=== PATIENT | female | born 2000 | race Caucasian/White ===

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

== ENCOUNTER 2019-02-20 00:02 | Emergency (ER) | payer MEDICAID ==
[~2019-02-20] VITALS: Ht 162.6 cm; Wt 77.1 kg
[2019-02-20] MEDS ORDERED: SODIUM CHLORIDE 0.9% 1,000 ML IV ONE (00:30)
[2019-02-20 01:16] LABS: Urine Bacteria FEW /hpf (None Seen); Urine Blood TRACE /uL (Negative); Urine Mucus FEW (None Seen); Urine Specific Gravity 1.036 (1.001-1.035); Urine WBC 1 /hpf (0 - 5)
[2019-02-20 01:22] LABS: Acetaminophen 3.8 ug/mL (10-30); Salicylate < 1.7 mg/dL (2.8-20.0)
[2019-02-20 01:25] LABS: Albumin 3.7 g/dL (3.4-5.0); Calcium 8.4 mg/dL (8.5-10.1); Potassium 3.3 mmol/L (3.5-5.1)
[2019-02-20 01:26] LABS: Basophils # (auto) 0 uL; Basophils % (auto) 0.1 % (0.0-2.0); Eosinophils # (auto) 0 uL; Eosinophils % (auto) 0.5 % (0.0-7.0); Hematocrit 40.5 % (36.0-46.0); Hemoglobin 13.8 g/dL (12.2-16.2); Lymphocytes # (auto) 1.8 uL; Lymphocytes % (auto) 21.4 % (10.0-50.0); Mean Corpuscular Hemoglobin 28.4 pg (28.0-32.0); Mean Corpuscular Hgb Conc. 34.1 g/dL (32.0-36.0); Mean Corpuscular Volume 83.3 fL (80.0-100.0); Monocytes # (auto) 0.5 uL; Monocytes % (auto) 6.2 % (0.0-12.0); Neutrophils # (auto) 5.9 uL; Neutrophils % (auto) 71.8 % (37.0-80.0); Nucleated Red Blood Cells % 0.1 %; Platelet Count (auto) 233 10^3/uL (140-450); Red Blood Cells 4.86 10^6/uL (4.0-5.20); Red Cell Distribution Width 13.7 % (11.8-14.3); White Blood Cell 8.3 10^3/uL (4.4-10.8)
[2019-02-20 01:26] LABS: Alcohol, Urine < 3.0 mg/dL (0-5); Amphetamine Screen, Urine NEGATIVE (NEGATIVE); Barbiturate Scree,Urine NEGATIVE (NEGATIVE); Benzodiazephine Screen, Urine NEGATIVE (NEGATIVE); Cannabinoid Screen, Urine NEGATIVE (NEGATIVE); Cocaine Screen, Urine NEGATIVE (NEGATIVE); Opiate Scree,Urine NEGATIVE (NEGATIVE); Phencyclidine Screen, Urine NEGATIVE (NEGATIVE)
[2019-02-20 01:27] LABS: BUN/Creatinine Ratio 17.5
[2019-02-20 01:29] LABS: Bilirubin, Total 0.3 mg/dL (0.2-1.0); Total Protein 6.8 g/dL (6.4-8.2)
[2019-02-20] MEDS ORDERED: POTASSIUM EFFERVESENT TAB 25 MEQ PO ONE (13:00)
[2019-02-20 14:30] VITALS: BP 111/73
== END 2019-02-20 14:47 | disposition short-term general hospital (02) ==
LOC: ER 00:02 → EDBD 00:02 → ER 14:47
DX: T50.902A Poisoning by unspecified drugs, medicaments and biological substances, intentional self-harm, initial encounter (principal); F41.9 Anxiety disorder, unspecified; F31.9 Bipolar disorder, unspecified; Y92.89 Other specified places as the place of occurrence of the external cause
CPT/HCPCS: 36415; 80053; 80307; 80329; 81001; 81025; 85025; 93005; 94761; 99285; J7030

== ENCOUNTER 2019-09-19 17:02 | Emergency (ER) | payer MEDICAID ==
[~2019-09-19] VITALS: Ht 162.6 cm; Wt 54.4 kg
[2019-09-19] MEDS ORDERED: SODIUM CHLORIDE 0.9% 1,000 ML IV ONE (18:26)
[2019-09-19 20:35] LABS: Basophils # (auto) 0 uL; Basophils % (auto) 0.5 % (0.0-2.0); Eosinophils # (auto) 0.1 uL; Eosinophils % (auto) 1.7 % (0.0-7.0); Hematocrit 43.1 % (36.0-46.0); Lymphocytes # (auto) 2.6 uL; Lymphocytes % (auto) 37.9 % (10.0-50.0); Mean Corpuscular Hemoglobin 28.8 pg (28.0-32.0); Mean Corpuscular Hgb Conc. 34.9 g/dL (32.0-36.0); Mean Corpuscular Volume 82.6 fL (80.0-100.0); Monocytes # (auto) 0.4 uL; Monocytes % (auto) 5.3 % (0.0-12.0); Neutrophils # (auto) 3.8 uL; Neutrophils % (auto) 54.6 % (37.0-80.0); Platelet Count (auto) 240 10^3/uL (140-450); Red Blood Cells 5.22 10^6/uL (4.0-5.20); Red Cell Distribution Width 13.9 % (11.8-14.3)
[2019-09-19 20:44] LABS: Urine Specific Gravity 1.027 (1.001-1.035)
[2019-09-19 20:45] VITALS: BP 107/70
[2019-09-19 20:45] LABS: Urine Blood Trace /uL (Negative)
[2019-09-19 20:49] LABS: Albumin 4.1 g/dL (3.4-5.0); Calcium 8.7 mg/dL (8.5-10.1); Potassium 4.2 mmol/L (3.5-5.1)
[2019-09-19 20:52] LABS: BUN/Creatinine Ratio 23.5; Bilirubin, Total 0.4 mg/dL (0.2-1.0); Total Protein 7.3 g/dL (6.4-8.2)
== END 2019-09-19 22:07 | disposition home or self-care (01) ==
LOC: ER 17:02
DX: N93.8 Other specified abnormal uterine and vaginal bleeding (principal); M54.5 Low back pain; F17.210 Nicotine dependence, cigarettes, uncomplicated; F12.10 Cannabis abuse, uncomplicated; J45.909 Unspecified asthma, uncomplicated
CPT/HCPCS: 36415; 80053; 81003; 84702; 85025; 99283; J7030

== ENCOUNTER → 2020-10-02 | Emergency (ER) | payer MEDICAID ==
[~2020-10-02] VITALS: Ht 165.1 cm; Wt 78.9 kg
[~2020-10-02] MED LIST changes: +LORazepam 2MG/ML-1ML VIAL IV ONE; +LORazepam 2MG/ML-1ML VIAL ONE; +SODIUM CHLORIDE 0.9% 1,000 ML IV ONE; +levETIRAcetam 500 MG/5ML INJ IV ONE
[2020-10-03 03:03] LABS: Basophils # (auto) 0 10 ^3/uL (0-0.2); Basophils % (auto) 0.2 % (0.0-2.0); Eosinophils # (auto) 0.1 10 ^3/uL (0-0.8); Hematocrit 36.9 % (36.0-46.0); Hemoglobin 12.4 g/dL (12.2-16.2); Lymphocytes # (auto) 2.8 10 ^3/uL (0.4-5.4); Lymphocytes % (auto) 37.5 % (10.0-50.0); Mean Corpuscular Hemoglobin 27.9 pg (28.0-32.0); Mean Corpuscular Hgb Conc. 33.7 g/dL (32.0-36.0); Monocytes # (auto) 0.4 10 ^3/uL (0-1.3); Neutrophils # (auto) 4.2 10 ^3/uL (1.6-8.6); Neutrophils % (auto) 56.3 % (37.0-80.0); Platelet Count (auto) 268 10^3/uL (140-450); Red Blood Cells 4.44 10^6/uL (4.0-5.20); Red Cell Distribution Width 13.9 % (11.8-14.3); White Blood Cell 7.4 10^3/uL (4.4-10.8)
[2020-10-03 03:17] LABS: Albumin 3.3 g/dL (3.4-5.0); BUN/Creatinine Ratio 8.9; Calcium 7.7 mg/dL (8.5-10.1)
[2020-10-03 03:20] LABS: Bilirubin, Total 0.3 mg/dL (0.2-1.0); Total Protein 6.1 g/dL (6.4-8.2)
[2020-10-03 05:31] VITALS: BP 99/58
== END | disposition home or self-care (01) ==
LOC: EDUNIT# 19:18 → EDBD 19:35 → ER 19:35
DX: G40.409 Other generalized epilepsy and epileptic syndromes, not intractable, without status epilepticus (principal); F17.210 Nicotine dependence, cigarettes, uncomplicated; F12.10 Cannabis abuse, uncomplicated; Z91.14 Patient's other noncompliance with medication regimen
CPT/HCPCS: 36415; 70450; 72125; 80053; 85025; 96365; 96375; 99285; J1953; J2060; J7030; J7060

== ENCOUNTER 2020-10-12 17:07 | Emergency (ER) | payer MEDICAID ==
[~2020-10-12] VITALS: Ht 170.2 cm; Wt 79.4 kg
[~2020-10-12 17:07] MED LIST changes: -LORazepam 2MG/ML-1ML VIAL IV ONE; -LORazepam 2MG/ML-1ML VIAL ONE; -SODIUM CHLORIDE 0.9% 1,000 ML IV ONE; -levETIRAcetam 500 MG/5ML INJ IV ONE
[2020-10-12] MEDS ORDERED: LORazepam 2MG/ML-1ML VIAL ONE (17:32)
[2020-10-12] MEDS ORDERED: SODIUM CHLORIDE 0.9% 1,000 ML IVB ONE (18:00)
[2020-10-12 20:10] LABS: Basophils # (auto) 0 10 ^3/uL (0-0.2); Basophils % (auto) 0.3 % (0.0-2.0); Eosinophils # (auto) 0 10 ^3/uL (0-0.8); Eosinophils % (auto) 0.4 % (0.0-7.0); Hematocrit 37.2 % (36.0-46.0); Hemoglobin 12.9 g/dL (12.2-16.2); Lymphocytes # (auto) 2.5 10 ^3/uL (0.4-5.4); Lymphocytes % (auto) 25.4 % (10.0-50.0); Mean Corpuscular Hemoglobin 28.6 pg (28.0-32.0); Mean Corpuscular Hgb Conc. 34.7 g/dL (32.0-36.0); Mean Corpuscular Volume 82.6 fL (80.0-100.0); Monocytes # (auto) 0.4 10 ^3/uL (0-1.3); Monocytes % (auto) 4.1 % (0.0-12.0); Neutrophils # (auto) 6.9 10 ^3/uL (1.6-8.6); Neutrophils % (auto) 69.8 % (37.0-80.0); Platelet Count (auto) 290 10^3/uL (140-450); Red Blood Cells 4.51 10^6/uL (4.0-5.20); Red Cell Distribution Width 13.8 % (11.8-14.3); White Blood Cell 9.9 10^3/uL (4.4-10.8)
[2020-10-12 20:19] LABS: Albumin 3.7 g/dL (3.4-5.0); Calcium 8.5 mg/dL (8.5-10.1); Potassium 3.4 mmol/L (3.5-5.1)
[2020-10-12 20:21] LABS: BUN/Creatinine Ratio 15.3
[2020-10-12 20:24] LABS: Bilirubin, Total 0.3 mg/dL (0.2-1.0); Total Protein 6.7 g/dL (6.4-8.2)
[2020-10-12 20:28] LABS: Acetaminophen < 2.0 ug/mL (10-30); Salicylate < 1.7 mg/dL (2.8-20.0)
[2020-10-12 20:32] LABS: Magnesium 2.1 mg/dL (1.6-2.6)
[2020-10-12 20:36] LABS: Creatine Kinase IFCC 56 U/L (26-192)
[2020-10-13 01:27] VITALS: BP 105/57
== END 2020-10-13 02:59 | disposition home or self-care (01) ==
LOC: ER 17:07 → EDUNIT# 17:07 → EDBD 17:07 → ER 10-13 02:58
DX: T65.91XA Toxic effect of unspecified substance, accidental (unintentional), initial encounter (principal); G40.909 Epilepsy, unspecified, not intractable, without status epilepticus; F17.210 Nicotine dependence, cigarettes, uncomplicated; Z79.899 Other long term (current) drug therapy; Y92.89 Other specified places as the place of occurrence of the external cause
CPT/HCPCS: 36415; 80053; 80320; 80329; 82542; 82550; 83605; 83735; 84484; 84702; 85025; 96360; 99283; J2060

== ENCOUNTER 2021-01-24 19:30 | Emergency (ER) | payer MEDICAID ==
[~2021-01-24] VITALS: Ht 170.2 cm; Wt 90.7 kg
[~2021-01-24 19:30] MED LIST changes: +ZIPR80CA37 PO; -ZIPR80CA8 PO
[2021-01-24 20:04] LABS: Basophils # (auto) 0 10 ^3/uL (0-0.2); Basophils % (auto) 0.5 % (0.0-2.0); Eosinophils # (auto) 0.1 10 ^3/uL (0-0.8); Eosinophils % (auto) 0.7 % (0.0-7.0); Hematocrit 37.8 % (36.0-46.0); Lymphocytes # (auto) 2.8 10 ^3/uL (0.4-5.4); Mean Corpuscular Hemoglobin 28.1 pg (28.0-32.0); Mean Corpuscular Hgb Conc. 34.4 g/dL (32.0-36.0); Mean Corpuscular Volume 81.6 fL (80.0-100.0); Monocytes # (auto) 0.5 10 ^3/uL (0-1.3); Monocytes % (auto) 6.3 % (0.0-12.0); Neutrophils # (auto) 4.6 10 ^3/uL (1.6-8.6); Neutrophils % (auto) 57.5 % (37.0-80.0); Nucleated Red Blood Cells % 0.1 %; Platelet Count (auto) 261 10^3/uL (140-450); Red Blood Cells 4.63 10^6/uL (4.0-5.20); Red Cell Distribution Width 14.5 % (11.8-14.3)
[2021-01-24 20:20] LABS: Albumin 3.5 g/dL (3.4-5.0); Calcium 8.5 mg/dL (8.5-10.1); Potassium 3.1 mmol/L (3.5-5.1)
[2021-01-24 20:22] LABS: Salicylate < 1.7 mg/dL (2.8-20.0)
[2021-01-24 20:23] LABS: BUN/Creatinine Ratio 17.6; Bilirubin, Total 0.6 mg/dL (0.2-1.0); Total Protein 6.4 g/dL (6.4-8.2)
[2021-01-24 20:40] LABS: Acetaminophen 115.1 ug/mL (10-30)
[2021-01-24 22:07] LABS: Basophils # (auto) 0 10 ^3/uL (0-0.2); Basophils % (auto) 0.3 % (0.0-2.0); Eosinophils # (auto) 0 10 ^3/uL (0-0.8); Eosinophils % (auto) 0.5 % (0.0-7.0); Hemoglobin 12.2 g/dL (12.2-16.2); Lymphocytes # (auto) 3.4 10 ^3/uL (0.4-5.4); Lymphocytes % (auto) 40.7 % (10.0-50.0); Mean Corpuscular Hemoglobin 27.9 pg (28.0-32.0); Mean Corpuscular Volume 82.2 fL (80.0-100.0); Monocytes # (auto) 0.5 10 ^3/uL (0-1.3); Monocytes % (auto) 5.7 % (0.0-12.0); Neutrophils # (auto) 4.4 10 ^3/uL (1.6-8.6); Neutrophils % (auto) 52.8 % (37.0-80.0); Nucleated Red Blood Cells % 0.2 %; Platelet Count (auto) 259 10^3/uL (140-450); Red Blood Cells 4.38 10^6/uL (4.0-5.20); Red Cell Distribution Width 14.4 % (11.8-14.3); White Blood Cell 8.4 10^3/uL (4.4-10.8)
[2021-01-24 22:12] LABS: Salicylate < 1.7 mg/dL (2.8-20.0)
[2021-01-24 22:13] LABS: Alanine Aminotransferase 34 U/L (13-56); Albumin 3.2 g/dL (3.4-5.0); Anion Gap 5 (5-15); Aspartate Aminotransferase 18 U/L (15-37); Blood Alcohol < 3.0 mg/dL (0-5); Blood Urea Nitrogen 13 mg/dL (7-18); Carbon Dioxide 25 mmol/L (21-32); Chloride 114 mmol/L (98-107); Glucose 85 mg/dL (74-106); Potassium 3.6 mmol/L (3.5-5.1); Sodium 144 mmol/L (136-145)
[2021-01-24 22:16] LABS: Alkaline Phosphatase 48 U/L (45-117); Bilirubin, Total 0.6 mg/dL (0.2-1.0); GFR African American 147 mL/min; GFR Non-African American 121 mL/min; Total Protein 5.9 g/dL (6.4-8.2)
[2021-01-24 22:25] LABS: Acetaminophen 93.9 ug/mL (10-30)
[2021-01-25 08:05] LABS: Albumin 3.4 g/dL (3.4-5.0); Calcium 8.6 mg/dL (8.5-10.1); Potassium 3.2 mmol/L (3.5-5.1)
[2021-01-25 08:09] LABS: Bilirubin, Total 0.6 mg/dL (0.2-1.0); Total Protein 6.3 g/dL (6.4-8.2)
[2021-01-25 14:07] LABS: Urine Bacteria MOD /hpf (None Seen); Urine Blood Negative /uL (Negative); Urine Mucus FEW (None Seen); Urine Specific Gravity 1.042 (1.001-1.035); Urine WBC 4 /hpf (0 - 5)
[2021-01-25 14:30] LABS: Cannabinoid Screen, Urine POSITIVE (NEGATIVE)
[2021-01-25 14:36] LABS: Amphetamine Screen, Urine NEGATIVE (NEGATIVE); Barbiturate Scree,Urine NEGATIVE (NEGATIVE); Benzodiazephine Screen, Urine NEGATIVE (NEGATIVE); Cocaine Screen, Urine NEGATIVE (NEGATIVE); Opiate Scree,Urine NEGATIVE (NEGATIVE); Phencyclidine Screen, Urine NEGATIVE (NEGATIVE)
[2021-01-25] MEDS ORDERED: diphenhdrAMINE HCL 50 MG/1 ML VL IV ONE (20:15)
[2021-01-25] MEDS ORDERED: LORazepam 2MG/ML-1ML VIAL IM ONE (20:15)
[2021-01-25] MEDS ORDERED: HALOPERIDOL LACTATE 5 MG/ML INJ VIAL IM ONE (20:15)
[2021-01-26 05:10] VITALS: BP 105/65
== END 2021-01-26 05:33 ==
LOC: EDBD 19:30 → EDUNIT# 19:30 → ER 19:30
DX: F15.10 Other stimulant abuse, uncomplicated (principal); F17.210 Nicotine dependence, cigarettes, uncomplicated; Z20.822 Contact with and (suspected) exposure to COVID-19; X83.8XXA Intentional self-harm by other specified means, initial encounter; Y93.89 Activity, other specified; Y92.89 Other specified places as the place of occurrence of the external cause; Y99.8 Other external cause status
CPT/HCPCS: 36415; 80053; 80307; 80320; 80329; 81001; 84702; 85025; 87426; 93005; 96372; 96374; 99285; J1200; J1630; J2060

== ENCOUNTER 2021-09-26 14:19 | Emergency (ER) | payer MEDICAID ==
[~2021-09-26] VITALS: Ht 121.9 cm; Wt 82.6 kg
[2021-09-26 14:24] VITALS: BP 116/61
[2021-09-26 16:05] LABS: Basophils # (auto) 0 10 ^3/uL (0-0.2); Basophils % (auto) 0.4 % (0.0-2.0); Eosinophils # (auto) 0.2 10 ^3/uL (0-0.8); Eosinophils % (auto) 1.8 % (0.0-7.0); Hematocrit 40.1 % (36.0-46.0); Lymphocytes # (auto) 2.6 10 ^3/uL (0.4-5.4); Lymphocytes % (auto) 27.5 % (10.0-50.0); Mean Corpuscular Hemoglobin 29.2 pg (28.0-32.0); Mean Corpuscular Volume 83.5 fL (80.0-100.0); Monocytes # (auto) 0.5 10 ^3/uL (0-1.3); Neutrophils # (auto) 6.1 10 ^3/uL (1.6-8.6); Neutrophils % (auto) 65.3 % (37.0-80.0); Red Cell Distribution Width 12.8 % (11.8-14.3); White Blood Cell 9.3 10^3/uL (4.4-10.8)
[2021-09-26 16:23] LABS: Albumin 3.8 g/dL (3.4-5.0); Calcium 8.5 mg/dL (8.5-10.1); Potassium 4.2 mmol/L (3.5-5.1)
[2021-09-26 16:29] LABS: BUN/Creatinine Ratio 16.9; Bilirubin, Total 0.6 mg/dL (0.2-1.0); Total Protein 6.8 g/dL (6.4-8.2)
== END 2021-09-26 15:18 | disposition left against medical advice (07) ==
LOC: ER 14:19
DX: B02.9 Zoster without complications (principal); F17.210 Nicotine dependence, cigarettes, uncomplicated; F12.10 Cannabis abuse, uncomplicated; J45.909 Unspecified asthma, uncomplicated; R94.31 Abnormal electrocardiogram [ECG] [EKG]
CPT/HCPCS: 36415; 80053; 85025; 93005

== ENCOUNTER → 2022-05-11 | Emergency (ER) | payer MEDICAID ==
[~2022-05-11] VITALS: Ht 162.6 cm; Wt 88.0 kg
[2022-05-11 22:11] LABS: Urine Bacteria FEW /hpf (None Seen); Urine Blood 3+ /uL (Negative); Urine Mucus FEW (None Seen); Urine Specific Gravity 1.028 (1.001-1.035); Urine WBC 1 /hpf (0 - 5)
[2022-05-11 22:26] VITALS: BP 147/82
[2022-05-11 23:31] LABS: Basophils # (auto) 0 10 ^3/uL (0-0.2); Basophils % (auto) 0.5 % (0.0-2.0); Eosinophils # (auto) 0.1 10 ^3/uL (0-0.8); Eosinophils % (auto) 1.6 % (0.0-7.0); Hematocrit 39.4 % (36.0-46.0); Hemoglobin 13.3 g/dL (12.2-16.2); Lymphocytes % (auto) 38.8 % (10.0-50.0); Mean Corpuscular Hemoglobin 28.1 pg (28.0-32.0); Mean Corpuscular Hgb Conc. 33.7 g/dL (32.0-36.0); Mean Corpuscular Volume 83.5 fL (80.0-100.0); Monocytes # (auto) 0.4 10 ^3/uL (0-1.3); Monocytes % (auto) 5.4 % (0.0-12.0); Neutrophils # (auto) 4.2 10 ^3/uL (1.6-8.6); Neutrophils % (auto) 53.7 % (37.0-80.0); Red Blood Cells 4.72 10^6/uL (4.0-5.20); Red Cell Distribution Width 13.7 % (11.8-14.3); White Blood Cell 7.8 10^3/uL (4.4-10.8)
[2022-05-11 23:49] LABS: Albumin 3.8 g/dL (3.4-5.0); BUN/Creatinine Ratio 16.9; Calcium 8.8 mg/dL (8.5-10.1); Potassium 3.5 mmol/L (3.5-5.1)
[2022-05-11 23:52] LABS: Bilirubin, Total 0.3 mg/dL (0.2-1.0); Total Protein 7.1 g/dL (6.4-8.2)
== END | disposition left against medical advice (07) ==
LOC: EDUNIT# 21:13 → ER 21:28 → EDBD 21:28
DX: G40.909 Epilepsy, unspecified, not intractable, without status epilepticus (principal); F17.210 Nicotine dependence, cigarettes, uncomplicated; J45.909 Unspecified asthma, uncomplicated
CPT/HCPCS: 36415; 70450; 80053; 81001; 84484; 85025; 93005

== ENCOUNTER 2022-08-04 16:32 | Emergency (ER) | payer MEDICAID ==
[~2022-08-04] VITALS: Ht 167.6 cm; Wt 68.0 kg
[2022-08-04 18:16] LABS: Basophils # (auto) 0.1 10 ^3/uL (0-0.2); Basophils % (auto) 0.4 % (0.0-2.0); Eosinophils # (auto) 0.1 10 ^3/uL (0-0.8); Eosinophils % (auto) 0.8 % (0.0-7.0); Hematocrit 43.6 % (36.0-46.0); Hemoglobin 14.3 g/dL (12.2-16.2); Lymphocytes % (auto) 16.4 % (10.0-50.0); Mean Corpuscular Hemoglobin 27.7 pg (28.0-32.0); Mean Corpuscular Hgb Conc. 32.7 g/dL (32.0-36.0); Mean Corpuscular Volume 84.8 fL (80.0-100.0); Monocytes # (auto) 0.6 10 ^3/uL (0-1.3); Monocytes % (auto) 4.6 % (0.0-12.0); Neutrophils # (auto) 9.4 10 ^3/uL (1.6-8.6); Neutrophils % (auto) 77.8 % (37.0-80.0); Red Blood Cells 5.14 10^6/uL (4.0-5.20); Red Cell Distribution Width 13.9 % (11.8-14.3)
[2022-08-04 18:30] LABS: INR 1.06 (0.9-1.15); Partial Thromboplastin Time 25.1 sec (24.6-33.4)
[2022-08-04 18:35] LABS: Albumin 4.2 g/dL (3.4-5.0); BUN/Creatinine Ratio 14.5; Calcium 9.2 mg/dL (8.5-10.1); Potassium 3.8 mmol/L (3.5-5.1)
[2022-08-04 18:38] LABS: Bilirubin, Total 0.4 mg/dL (0.2-1.0); Total Protein 7.4 g/dL (6.4-8.2)
[2022-08-04 18:48] VITALS: BP 113/66
[2022-08-04] MEDS ORDERED: BACITRACIN INJ 50000 UNIT VIAL TOP ONE (20:15)
[2022-08-04] MEDS ORDERED: PHENYTOIN SODIUM 100 MG CAP PO ONE (20:15)
== END 2022-08-04 21:51 | disposition left against medical advice (07) ==
LOC: EDUNIT# 16:32 → ER 16:32 → EDBD 16:32 → ER 21:51
DX: T14.8XXA Other injury of unspecified body region, initial encounter (principal); G40.909 Epilepsy, unspecified, not intractable, without status epilepticus; J45.909 Unspecified asthma, uncomplicated; F17.210 Nicotine dependence, cigarettes, uncomplicated; Z91.14 Patient's other noncompliance with medication regimen; Z79.899 Other long term (current) drug therapy; Y04.2XXA Assault by strike against or bumped into by another person, initial encounter; Y93.89 Activity, other specified; Y92.89 Other specified places as the place of occurrence of the external cause; Y99.8 Other external cause status
CPT/HCPCS: 36415; 70450; 71045; 71250; 74176; 80053; 80185; 85025; 85610; 85730; 93005

== ENCOUNTER 2023-01-06 12:26 | Emergency (ER) | payer MEDICAID ==
[~2023-01-06] VITALS: Ht 162.6 cm; Wt 80.2 kg
[2023-01-06 14:22] VITALS: BP 116/84
[2023-01-06] MEDS ORDERED: KET2TP TOP ×3 (14:49→14:50)
[2023-01-06] MEDS ORDERED: CEPH-510 PO ×3 (14:49→14:50)
[2023-01-06] MEDS ORDERED: ALBU108A5 IN ×3 (14:49→14:50)
== END 2023-01-06 14:58 | disposition home or self-care (01) ==
LOC: ER 12:26
DX: B35.3 Tinea pedis (principal); J20.9 Acute bronchitis, unspecified; J45.909 Unspecified asthma, uncomplicated; F17.210 Nicotine dependence, cigarettes, uncomplicated; Z79.899 Other long term (current) drug therapy

== ENCOUNTER 2023-10-05 14:28 | Emergency (ER) | payer MEDICAID ==
[~2023-10-05] VITALS: Ht 162.6 cm; Wt 72.7 kg
[~2023-10-05 14:28] MED LIST changes: +ALBU108A5 IN; +CEPH-510 PO; +KET2TP TOP
[2023-10-05 14:30] VITALS: BP 131/95; PULSE 99; RESP 18; O2SAT 98
[2023-10-05 15:29] LABS: Urine Bacteria NONE SEEN /hpf (None Seen); Urine Blood TRACE /uL (Negative); Urine Clarity CLOUDY (Clear); Urine Color Yellow (Yellow); Urine Mucus FEW (None Seen); Urine Protein, UAD TRACE (Negative); Urine Specific Gravity 1.029 (1.001-1.035); Urine Urobilinogen Normal (Negative); Urine WBC 55 /hpf (0 - 5); Urine WBC Clumps PRESENT /hpf (None Seen); Urine pH 5.5 (5.0-8.0)
[2023-10-05] MEDS ORDERED: ONDANSETRON HCL 4 MG/2 ML VIAL IV ONE (15:30)
[2023-10-05] MEDS ORDERED: PANTOPRAZOLE 40 MG/10 ML VIAL INJ IV ONE (15:30)
[2023-10-05] MEDS ORDERED: SODIUM CHLORIDE 0.9% 1,000 ML IVB ONE (15:30)
[2023-10-05 15:52] LABS: Amphetamine Screen, Urine Neg (NEGATIVE); Benzodiazephine Screen, Urine Neg (NEGATIVE)
[2023-10-05 15:53] LABS: Barbiturate Scree,Urine Neg (NEGATIVE); Cannabinoid Screen, Urine Pos (NEGATIVE); Cocaine Screen, Urine Neg (NEGATIVE); Opiate Scree,Urine Neg (NEGATIVE); Phencyclidine Screen, Urine Neg (NEGATIVE)
== END 2023-10-05 16:21 | disposition left against medical advice (07) ==
LOC: ER 14:28
DX: R10.11 Right upper quadrant pain (principal); R10.12 Left upper quadrant pain; R11.2 Nausea with vomiting, unspecified; J45.909 Unspecified asthma, uncomplicated; F17.210 Nicotine dependence, cigarettes, uncomplicated; F12.10 Cannabis abuse, uncomplicated; Z79.899 Other long term (current) drug therapy; Z32.02 Encounter for pregnancy test, result negative
CPT/HCPCS: 80307; 81001; 81025

== ENCOUNTER 2023-12-22 18:47 | Emergency (ER) | payer MEDICAID ==
[~2023-12-22] VITALS: Ht 162.6 cm; Wt 72.0 kg
[2023-12-22] MEDS: ONDANSETRON HCL 4 MG/2 ML VIAL IM ONE (23:15)
[2023-12-22] MEDS: LACTULOSE 20Gm/30ML SOLN PO ONE (23:24)
[2023-12-22] MEDS: FLEET ENEMA(ADULT) 135 ML PR ONE (23:32)
[2023-12-22 23:44] LABS: Urine Bacteria NONE SEEN /hpf (None Seen); Urine Blood Negative /uL (Negative); Urine Clarity HAZY (Clear); Urine Color Yellow (Yellow); Urine Mucus MANY (None Seen); Urine Protein, UAD 1+ (Negative); Urine Specific Gravity 1.034 (1.001-1.035); Urine WBC 4 /hpf (0 - 5); Urine pH 5.5 (5.0-8.0)
[2023-12-23 00:33] VITALS: BP 125/75; PULSE 104; RESP 20; TEMP 97.9; O2SAT 97
[2023-12-23] MEDS: METOCLOPRAMIDE HCL 5MG/ml INJ 2ml VIAL IM ONE (00:45)
[2023-12-23] MEDS ORDERED: METO-281 PO (00:54)
[2023-12-23] MEDS ORDERED: LACT10SO3 PO (00:54)
[2023-12-23] MEDS ORDERED: ZOFR4T PO (00:54)
== END 2023-12-23 02:45 | disposition home or self-care (01) ==
LOC: ER 18:47
DX: O21.8 Other vomiting complicating pregnancy (principal); O99.611 Diseases of the digestive system complicating pregnancy, first trimester; K59.00 Constipation, unspecified; O99.511 Diseases of the respiratory system complicating pregnancy, first trimester; J45.909 Unspecified asthma, uncomplicated; O99.331 Smoking (tobacco) complicating pregnancy, first trimester; Z79.899 Other long term (current) drug therapy; Z88.8 Allergy status to other drugs, medicaments and biological substances; Z3A.08 8 weeks gestation of pregnancy
CPT/HCPCS: 81001; 81025; 96372; 99283; J2405

== ENCOUNTER 2024-02-08 08:34 | Emergency (ER) | payer MEDICAID ==
[~2024-02-08] VITALS: Ht 162.6 cm; Wt 75.8 kg
[~2024-02-08 08:34] MED LIST changes: +LACT10SO3 PO; +METO-281 PO; -ZIPR80CA37 PO; +ZIPR80CA43 PO; +ZOFR4T PO
[2024-02-08 09:43] VITALS: BP 123/71; PULSE 94; RESP 16; TEMP 97.8; O2SAT 97
[2024-02-08] MEDS: ACETAMINOPHEN 500 MG TAB PO ONE (09:53)
== END 2024-02-08 10:33 | disposition left against medical advice (07) ==
LOC: ER 08:34
DX: O26.892 Other specified pregnancy related conditions, second trimester (principal); G43.909 Migraine, unspecified, not intractable, without status migrainosus; F17.210 Nicotine dependence, cigarettes, uncomplicated; F12.10 Cannabis abuse, uncomplicated; Z3A.15 15 weeks gestation of pregnancy

== ENCOUNTER 2024-04-19 00:57 | Observation (INO) | payer MEDICAID ==
[~2024-04-19] VITALS: Ht 162.6 cm; Wt 74.4 kg
== END 2024-04-19 02:12 | disposition home or self-care (01) ==
LOC: LDRP 00:57
PROVIDERS: ADMIT Obstetrics & Gynecology; ATTEND Obstetrics & Gynecology
DX: O9A.212 Injury, poisoning and certain other consequences of external causes complicating pregnancy, second trimester (principal); S39.91XA Unspecified injury of abdomen, initial encounter; O62.9 Abnormality of forces of labor, unspecified; O99.322 Drug use complicating pregnancy, second trimester; F12.90 Cannabis use, unspecified, uncomplicated; Z3A.25 25 weeks gestation of pregnancy; Z87.891 Personal history of nicotine dependence; W50.0XXA Accidental hit or strike by another person, initial encounter; Y93.89 Activity, other specified; Y92.89 Other specified places as the place of occurrence of the external cause; Y99.8 Other external cause status
CPT/HCPCS: 59025; 76805; 81002; 94760; G0378

== ENCOUNTER 2024-08-03 02:57 | Inpatient (IN) | payer MEDICAID, OTHER ==
[~2024-08-03] VITALS: Ht 165.1 cm; Wt 78.0 kg
[2024-08-03 03:29] LABS: Basophils # (auto) 0 10 ^3/uL (0-0.2); Basophils % (auto) 0.4 % (0.0-2.0); Eosinophils # (auto) 0.1 10 ^3/uL (0-0.8); Hemoglobin 11.4 g/dL (12.2-16.2); Lymphocytes # (auto) 2.7 10 ^3/uL (0.4-5.4); Monocytes # (auto) 0.6 10 ^3/uL (0-1.3)
[2024-08-03 03:31] LABS: Hematocrit 34.6 % (36.0-46.0); Lymphocytes % (auto) 22.1 % (10.0-50.0); Mean Corpuscular Hemoglobin 25.2 pg (28.0-32.0); Mean Corpuscular Volume 76.2 fL (80.0-100.0); Monocytes % (auto) 4.8 % (0.0-12.0); Neutrophils # (auto) 8.9 10 ^3/uL (1.6-8.6); Neutrophils % (auto) 71.7 % (37.0-80.0); Nucleated Red Blood Cells % 0.1 %; Platelet Count (auto) 382 10^3/uL (140-450); Red Blood Cells 4.54 10^6/uL (4.0-5.20); Red Cell Distribution Width 15.4 % (11.8-14.3); White Blood Cell 12.4 10^3/uL (4.4-10.8)
[2024-08-03 03:42] LABS: Alanine Aminotransferase 18 U/L (7-40); Albumin 4.4 g/dL (3.2-4.8); Alkaline Phosphatase 143 U/L (46-116); Anion Gap 9 (5-15); Aspartate Aminotransferase 11 U/L (13-40); BUN/Creatinine Ratio 14.3 (10.0-20.0); Bilirubin, Total 0.2 mg/dL (0.2-1.0); Blood Urea Nitrogen 12 mg/dL (9-23); Calcium 9.3 mg/dL (8.7-10.4); Carbon Dioxide 23 mmol/L (20-31); Chloride 112 mmol/L (98-107); Glucose 109 mg/dL (74-106); Magnesium 1.7 mg/dL (1.6-2.6); Potassium 3.5 mmol/L (3.5-5.1); Sodium 144 mmol/L (136-145); Total Protein 6.8 g/dL (5.7-8.2)
[2024-08-03 03:46] LABS: INR 1.02 (0.9-1.15); Partial Thromboplastin Time 26.2 SEC (24.5-34.5); Prothrombin Time 10.8 sec (9.3-11.8)
[2024-08-03 05:25] LABS: Urine Bacteria None Seen /hpf (None Seen)
[2024-08-03] MEDS: MORPHINE SULFATE 4 MG/ML SYR/VIAL IV ONE (05:25)
[2024-08-03] MEDS: ONDANSETRON HCL 4 MG/2 ML VIAL IV ONE (05:26)
[2024-08-03] MEDS: MORPHINE SULFATE INJ 2 MG/ml SYRG IV ONE (05:29)
[2024-08-03 05:45] LABS: Urine Blood 1+ /uL (Negative); Urine Clarity Clear (Clear); Urine Color Yellow (Yellow); Urine Mucus FEW (None Seen); Urine Protein, UAD TRACE (Negative); Urine Specific Gravity 1.034 (1.001-1.035); Urine Urobilinogen Normal (Negative); Urine WBC 28 /hpf (0 - 5); Urine pH 5.5 (5.0-9.0)
[2024-08-03 07:30] VITALS: PULSE 80; RESP 12; O2SAT 94
[2024-08-03] MEDS: levETIRAcetam 500 mg/100ml 100 ML IV ONE (08:11)
[2024-08-03] MEDS ORDERED: NITROGLYCERIN 0.4 MG SL TAB SL PRN (09:45)
[2024-08-03] MEDS: IOHEXOL 350 MG/ML 100ML IJ ONE (09:54)
[2024-08-03] MEDS ORDERED: ALBUTEROL SULF 2.5 MG/0.5ML(0.5%) NEB SOLN NEB PRN (10:15)
[2024-08-03] MEDS ORDERED: IPRATROPIUM BROM 0.5 MG/2.5ML INH SOL NEB PRN (10:15)
[2024-08-03 10:26] LABS: Amphetamine Screen, Urine Neg (NEGATIVE); Barbiturate Scree,Urine Neg (NEGATIVE); Benzodiazephine Screen, Urine Neg (NEGATIVE); Cocaine Screen, Urine Neg (NEGATIVE)
[2024-08-03 10:27] LABS: Cannabinoid Screen, Urine Neg (NEGATIVE); Opiate Scree,Urine Neg (NEGATIVE); Phencyclidine Screen, Urine Neg (NEGATIVE)
[2024-08-03 10:34] VITALS: BP 125/71; PULSE 80; RESP 12; TEMP 98.3; O2SAT 94
[2024-08-03 10:41] VITALS: O2SAT 94
[2024-08-03] MEDS: MORPHINE SULFATE INJ 2 MG/ml SYRG IV PRN (15:04)
[2024-08-03] MEDS: MORPHINE SULFATE INJ 2 MG/ml SYRG ONE (15:05)
[2024-08-03] MEDS: ACETAMINOPHEN 325 MG TAB PO PRN (17:02)
[2024-08-03 18:27] VITALS: O2SAT 98
[2024-08-03 19:15] VITALS: PULSE 63; RESP 11; O2SAT 94
[2024-08-03] MEDS: levETIRAcetam 500 MG TAB PO SCH (20:00)
[2024-08-04 06:15] LABS: Eosinophils # (auto) 0.2 10 ^3/uL (0-0.8); Hemoglobin 10.7 g/dL (12.2-16.2); Mean Corpuscular Volume 76.1 fL (80.0-100.0); Monocytes # (auto) 0.6 10 ^3/uL (0-1.3); Red Cell Distribution Width 15.6 % (11.8-14.3)
[2024-08-04 06:17] LABS: Basophils # (auto) 0.1 10 ^3/uL (0-0.2); Basophils % (auto) 0.5 % (0.0-2.0); Eosinophils % (auto) 1.5 % (0.0-7.0); Hematocrit 32.6 % (36.0-46.0); Lymphocytes % (auto) 27.1 % (10.0-50.0); Mean Corpuscular Hgb Conc. 32.9 g/dL (32.0-36.0); Neutrophils # (auto) 7.3 10 ^3/uL (1.6-8.6); Neutrophils % (auto) 65.9 % (37.0-80.0); Nucleated Red Blood Cells % 0.1 %; Platelet Count (auto) 325 10^3/uL (140-450); Red Blood Cells 4.28 10^6/uL (4.0-5.20); White Blood Cell 11.1 10^3/uL (4.4-10.8)
[2024-08-04 06:30] LABS: Calcium 9.4 mg/dL (8.7-10.4); Chloride 112 mmol/L (98-107); Potassium 3.7 mmol/L (3.5-5.1); Sodium 143 mmol/L (136-145)
[2024-08-04 06:32] LABS: Anion Gap 7 (5-15); Carbon Dioxide 24 mmol/L (20-31)
[2024-08-04 06:37] LABS: Blood Urea Nitrogen 12 mg/dL (9-23); Glucose 86 mg/dL (74-106)
[2024-08-04 09:45] VITALS: O2SAT 96
[2024-08-04 11:35] VITALS: PULSE 62; RESP 12; O2SAT 96
[2024-08-04] MEDS ORDERED: NITR-52 PO (14:07)
[2024-08-04] MEDS ORDERED: SIME80CH49 PO (14:07)
[2024-08-04] MEDS ORDERED: PANT40TA57 PO (14:07)
[2024-08-04 14:42] VITALS: BP 123/76; PULSE 89; RESP 12; TEMP 98.6; O2SAT 97
[2024-08-04 14:46] VITALS: BP 123/76; RESP 11; O2SAT 97
[2024-08-04 15:37] VITALS: PULSE 77
== END 2024-08-04 15:35 | disposition home or self-care (01) | DRG 243 ==
LOC: ER 02:57 → EDBD 02:57 → TELE 09:43
PROVIDERS: ADMIT Registered Nurse General Practice; ATTEND Registered Nurse General Practice
DX: K21.9 Gastro-esophageal reflux disease without esophagitis (principal); F17.210 Nicotine dependence, cigarettes, uncomplicated; R07.89 Other chest pain; J45.909 Unspecified asthma, uncomplicated; N39.0 Urinary tract infection, site not specified; Z79.899 Other long term (current) drug therapy; Z91.018 Allergy to other foods; Z88.8 Allergy status to other drugs, medicaments and biological substances; Z80.9 Family history of malignant neoplasm, unspecified
CPT/HCPCS: 36415; 71045; 71275; 80048; 80053; 80307; 81001; 83735; 83880; 84484; 85025; 85379; 85610; 85730; 93005; 99291; G0378; J2405

== ENCOUNTER 2024-08-08 04:22 | Inpatient (IN) | payer MEDICAID ==
[~2024-08-08] VITALS: Ht 162.6 cm; Wt 85.9 kg
[~2024-08-08 04:22] MED LIST changes: -CEPH-510 PO; -KET2TP TOP; -METO-281 PO; +NITR-52 PO; +PANT40TA57 PO; +SIME80CH49 PO
[2024-08-08 05:04] LABS: Basophils # (auto) 0.1 10 ^3/uL (0-0.2); Eosinophils # (auto) 0.2 10 ^3/uL (0-0.8); Lymphocytes # (auto) 3.1 10 ^3/uL (0.4-5.4); Mean Corpuscular Hemoglobin 25.3 pg (28.0-32.0)
[2024-08-08 05:05] LABS: Basophils % (auto) 0.5 % (0.0-2.0); Hematocrit 35.3 % (36.0-46.0); Hemoglobin 11.8 g/dL (12.2-16.2); Mean Corpuscular Hgb Conc. 33.5 g/dL (32.0-36.0); Mean Corpuscular Volume 75.7 fL (80.0-100.0); Monocytes # (auto) 0.6 10 ^3/uL (0-1.3); Monocytes % (auto) 5.2 % (0.0-12.0); Neutrophils # (auto) 6.7 10 ^3/uL (1.6-8.6); Neutrophils % (auto) 63.3 % (37.0-80.0); Platelet Count (auto) 342 10^3/uL (140-450); Red Blood Cells 4.66 10^6/uL (4.0-5.20); Red Cell Distribution Width 15.5 % (11.8-14.3); White Blood Cell 10.7 10^3/uL (4.4-10.8)
[2024-08-08 05:20] LABS: INR 1.06 (0.9-1.15); Partial Thromboplastin Time 26.8 SEC (24.5-34.5); Prothrombin Time 11.2 sec (9.3-11.8)
[2024-08-08 05:21] LABS: Alanine Aminotransferase 16 U/L (7-40); Albumin 4.1 g/dL (3.2-4.8); Alkaline Phosphatase 110 U/L (46-116); Anion Gap 8 (5-15); Aspartate Aminotransferase < 8 U/L (13-40); BUN/Creatinine Ratio 14.6 (10.0-20.0); Blood Urea Nitrogen 12 mg/dL (9-23); Calcium 9.5 mg/dL (8.7-10.4); Carbon Dioxide 24 mmol/L (20-31); Chloride 111 mmol/L (98-107); Glucose 99 mg/dL (74-106); Potassium 3.7 mmol/L (3.5-5.1); Sodium 143 mmol/L (136-145)
[2024-08-08 05:22] LABS: Bilirubin, Total 0.3 mg/dL (0.2-1.0); Total Protein 6.5 g/dL (5.7-8.2)
[2024-08-08 06:14] VITALS: PULSE 63; RESP 13; O2SAT 98
[2024-08-08 06:41] VITALS: PULSE 63; RESP 13; O2SAT 98
[2024-08-08] MEDS: ASPirin 325 MG TAB PO ONE (07:00)
[2024-08-08 07:33] VITALS: PULSE 91; RESP 18; O2SAT 97
[2024-08-08 09:58] LABS: Urine Bacteria FEW /hpf (None Seen); Urine Blood 1+ /uL (Negative); Urine Clarity Clear (Clear); Urine Color Light-Yellow (Yellow); Urine Mucus FEW (None Seen); Urine Protein, UAD Negative (Negative); Urine Specific Gravity 1.022 (1.001-1.035); Urine Urobilinogen Normal (Negative); Urine WBC 43 /hpf (0 - 5); Urine pH 5.5 (5.0-9.0)
[2024-08-08 09:59] LABS: Amphetamine Screen, Urine Neg (NEGATIVE); Benzodiazephine Screen, Urine Neg (NEGATIVE)
[2024-08-08 10:00] LABS: Barbiturate Scree,Urine Neg (NEGATIVE); Cannabinoid Screen, Urine Neg (NEGATIVE); Cocaine Screen, Urine Neg (NEGATIVE); Opiate Scree,Urine Neg (NEGATIVE); Phencyclidine Screen, Urine Neg (NEGATIVE)
[2024-08-08] MEDS: levETIRAcetam 500 MG TAB PO SCH (13:19)
[2024-08-08] MEDS: KETOROLAC TROMETH 30 MG/ML 1ML VIAL IV PRN (13:19)
[2024-08-08] MEDS: PANTOPRAZOLE 40 MG TAB PO SCH (13:20)
[2024-08-08 19:50] VITALS: PULSE 57; RESP 15; O2SAT 99
[2024-08-09] VITALS (9 sets, daily range): BP systolic 93–120; BP diastolic 44–86; PULSE 54–130; RESP 16–20; TEMP 98.4–102; O2SAT 96–99
[2024-08-09 06:14] LABS: Anion Gap 7 (5-15); Carbon Dioxide 25 mmol/L (20-31); Chloride 111 mmol/L (98-107); Potassium 3.8 mmol/L (3.5-5.1); Sodium 143 mmol/L (136-145)
[2024-08-09 06:15] LABS: Calcium 9.3 mg/dL (8.7-10.4)
[2024-08-09 06:20] LABS: Blood Urea Nitrogen 15 mg/dL (9-23); Glucose 99 mg/dL (74-106)
[2024-08-09 06:21] LABS: Basophils # (auto) 0.1 10 ^3/uL (0-0.2); Basophils % (auto) 0.8 % (0.0-2.0); Eosinophils # (auto) 0.2 10 ^3/uL (0-0.8); Monocytes # (auto) 0.5 10 ^3/uL (0-1.3); Neutrophils # (auto) 4.6 10 ^3/uL (1.6-8.6); Nucleated Red Blood Cells % 0.1 %; White Blood Cell 8.4 10^3/uL (4.4-10.8)
[2024-08-09 06:23] LABS: Eosinophils % (auto) 2.5 % (0.0-7.0); Lymphocytes % (auto) 36.1 % (10.0-50.0); Mean Corpuscular Hemoglobin 25.2 pg (28.0-32.0); Mean Corpuscular Hgb Conc. 33.4 g/dL (32.0-36.0); Mean Corpuscular Volume 75.5 fL (80.0-100.0); Monocytes % (auto) 6.4 % (0.0-12.0); Neutrophils % (auto) 54.2 % (37.0-80.0); Platelet Count (auto) 290 10^3/uL (140-450); Red Blood Cells 4.38 10^6/uL (4.0-5.20); Red Cell Distribution Width 15.3 % (11.8-14.3)
[2024-08-09] MEDS: NITROGLYCERIN 0.4 MG SL TAB SL PRN (09:39)
[2024-08-09] MEDS: MORPHINE SULFATE INJ 2 MG/ml SYRG IV PRN (09:40)
[2024-08-09] MEDS: ONDANSETRON HCL 4 MG/2 ML VIAL IV PRN (15:07)
[2024-08-09] MEDS ORDERED: PANT40TA2 PO (17:02)
[2024-08-09] MEDS: ACETAMINOPHEN 325 MG TAB PO PRN (21:17)
[2024-08-10] VITALS (9 sets, daily range): BP systolic 88–106; BP diastolic 57–70; PULSE 62–98; RESP 16–18; TEMP 98.4–100.2; O2SAT 92–100
[2024-08-10 14:32] LABS: Basophils # (auto) 0 10 ^3/uL (0-0.2); Basophils % (auto) 0.4 % (0.0-2.0); Eosinophils # (auto) 0 10 ^3/uL (0-0.8); Eosinophils % (auto) 0.6 % (0.0-7.0); Hematocrit 37.1 % (36.0-46.0); Hemoglobin 11.8 g/dL (12.2-16.2); Lymphocytes # (auto) 1.5 10 ^3/uL (0.4-5.4); Lymphocytes % (auto) 28.5 % (10.0-50.0); Mean Corpuscular Hgb Conc. 31.9 g/dL (32.0-36.0); Mean Corpuscular Volume 75.4 fL (80.0-100.0); Monocytes # (auto) 0.3 10 ^3/uL (0-1.3); Monocytes % (auto) 5.8 % (0.0-12.0); Neutrophils # (auto) 3.3 10 ^3/uL (1.6-8.6); Neutrophils % (auto) 64.7 % (37.0-80.0); Platelet Count (auto) 274 10^3/uL (140-450); Red Blood Cells 4.92 10^6/uL (4.0-5.20); Red Cell Distribution Width 15.8 % (11.8-14.3); White Blood Cell 5.1 10^3/uL (4.4-10.8)
[2024-08-10 14:50] LABS: Alanine Aminotransferase 31 U/L (7-40); Alkaline Phosphatase 124 U/L (46-116); Anion Gap 6 (5-15); Aspartate Aminotransferase 24 U/L (13-40); BUN/Creatinine Ratio 23.8 (10.0-20.0); Blood Urea Nitrogen 19 mg/dL (9-23); Calcium 9.1 mg/dL (8.7-10.4); Carbon Dioxide 27 mmol/L (20-31); Chloride 110 mmol/L (98-107); Glucose 88 mg/dL (74-106); Potassium 3.6 mmol/L (3.5-5.1); Sodium 143 mmol/L (136-145)
[2024-08-10 14:51] LABS: Bilirubin, Total 0.5 mg/dL (0.2-1.0); Total Protein 6.3 g/dL (5.7-8.2)
[2024-08-11] VITALS (8 sets, daily range): BP systolic 90–106; BP diastolic 45–68; PULSE 64–72; RESP 16–19; TEMP 98.1–98.8; O2SAT 96–98
[2024-08-12 01:00] VITALS: BP 117/65; PULSE 58; RESP 18; TEMP 98.2; O2SAT 99
[2024-08-12 05:00] VITALS: BP 106/64; PULSE 70; RESP 18; TEMP 98.9; O2SAT 97
[2024-08-12 08:00] VITALS: PULSE 55
[2024-08-12 09:13] VITALS: BP 105/70; PULSE 65; RESP 17; TEMP 98.9; O2SAT 97
[2024-08-12] MEDS ORDERED: TRAM-626 PO (10:06)
[2024-08-12] MEDS ORDERED: ZOFR4T PO (10:06)
[2024-08-12 11:08] VITALS: BP 105/70; PULSE 65; RESP 17; TEMP 37.2; O2SAT 97
== END 2024-08-12 12:18 | disposition home or self-care (01) | DRG 243 ==
LOC: EDBD 04:22 → ER 04:22 → TELE 09:40 → TELE-EAST 23:23
PROVIDERS: ADMIT Registered Nurse General Practice; ATTEND Student in an Organized Health Care Education/Training Program
DX: K21.9 Gastro-esophageal reflux disease without esophagitis (principal); R45.851 Suicidal ideations; F17.210 Nicotine dependence, cigarettes, uncomplicated; F12.10 Cannabis abuse, uncomplicated; D50.9 Iron deficiency anemia, unspecified; F32.A Depression, unspecified; J45.909 Unspecified asthma, uncomplicated; F41.9 Anxiety disorder, unspecified; G40.909 Epilepsy, unspecified, not intractable, without status epilepticus; K27.9 Peptic ulcer, site unspecified, unspecified as acute or chronic, without hemorrhage or perforation; Z88.1 Allergy status to other antibiotic agents; Z91.018 Allergy to other foods; Z79.899 Other long term (current) drug therapy
CPT/HCPCS: 36415; 71045; 72131; 80048; 80053; 80307; 81001; 83605; 83735; 83880; 84484; 84702; 85025; 85610; 85730; 93005; 93306; 96374; 99291; G0378; J1885; J2405

== ENCOUNTER 2024-10-23 00:19 | Inpatient (IN) | payer MEDICAID ==
[~2024-10-23] VITALS: Ht 162.6 cm; Wt 81.2 kg
[2024-10-23] VITALS (8 sets, daily range): BP systolic 110–125; BP diastolic 57–70; PULSE 55–65; RESP 16–18; TEMP 97.7–98; O2SAT 97–100
[~2024-10-23 00:19] MED LIST changes: +PANT40TA2 PO; +TRAM-626 PO
--- NOTE | 2024-10-23 01:10 | ED.PDOC ---
History of Present Illness HPI Comments 24 y/o F, with a Hx of cholecystitis, cholelithiasis, GERD, , and polysubstance abuse, is BIBA for c/o epigastric and RUQ abdominal pain, nausea, and vomiting, today. Patient endorses on sudden onset of symptoms after eating dinner, yesterday, evening. She comments on pain being sharp in quality and exacerbated whenever pressure is placed over her RUQ and epigastric region. Patient further elaborates on having pain before and being diagnosed with cholelithiasis and cholecystitis with accompanying hospital visits in the past but has never had her gallbladder removed, due to "history of C-sections." She endorse no additional relevant or pertinent Hx, such as recent injuries, reynolds spected spoiled food consumption, or . Patient denies having any hematemesis, diarrhea, constipation, urinary symptoms, fever, chills, or other associated symptoms or modifiers at this time. Per EMS report, patient's vitals were stable and she was given 4mg Zofran ODT en route. Chief Complaint: Abdominal Pain Time Seen by : 00:25 Primary Care Provider: RENETTA Reviewed Notes: Nurses Notes, Raise Drill Operator Notes, Medications, Allergies Allergies: Coded Allergies: Avocado (Verified Allergy, Unknown, 04/19/24) Coconut (Cocos Nucifera) (Verified Allergy, Unknown, 04/19/24) Phenytoin (Verified Allergy, Unknown, 04/19/24) Valproic Acid (Verified Allergy, Unknown, 12/22/23) Home Meds Active Scripts Tramadol HCl (Tramadol HCl) 50 Mg Tab, 50 MG PO TIDPRN PRN for 5 Days, #15 TAB Prov:DORCAS CARVAJAL MD 08/12/24 Ondansetron Odt 4MG Tab (ZOFRAN PO) 4 Mg Tb, 4 MG PO TIDPRN PRN for 7 Days, #21 TAB 0 Refills as needed for nausea; ODT TAB-DISSOLVE IN MOUTH, THEN SWALLOW Prov:DORCAS CARVAJAL MD 08/12/24 Pantoprazole Sodium Sesquihydr (Protonix) 40 Mg Tab, 40 MG PO DAILY for 30 Days, #30 TAB 1 Refill Prov:DORCAS CARVAJAL MD 08/09/24 Simethicone (Simethicone) 80 Mg Chw, 1 TAB PO Q8HR, #10 TAB Prov:ANNE BLOUNT MD 08/04/24 Pantoprazole Sodium Sesquihydr (Pantoprazole Sodium Dr) 40 Mg Tab, 40 MG PO DAILY, #20 TAB Prov:ANNE BLOUNT MD 08/04/24 Nitrofurantoin (Nitrofurantoin) 100 Mg Cap, 1 CAP PO BID, #10 CAP Prov:ANNE BLOUNT MD 08/04/24 Lactulose (Lactulose) 10 Gm/15 Ml Cristiana, 10 GM PO BIDP PRN, #150 ML Prov:JAY TURNER PAC 12/23/23 Albuterol Sulfate (Albuterol Sulfate Hfa) 108 Mcg/Act Aer, 108 MCG IN TID, #90 AER Prov:MICHELLE CASTELLANOS PA 01/06/23 Reported Medications Ziprasidone Hydrochloride (Geodon) 80 Mg Cap, 80 MG PO DAILY, CAP 05/22/14 Quetiapine Fumerate (Seroquel) 50 Mg Tab, 50 MG PO, TAB 05/22/14 Information Source: Patient, Emergency Med Personnel Mode of Arrival: EMS Severity: Moderate Timing: Hours Duration: Since onset Prehospital treatment: 12 Lead EKG, Alley Worker, Other (zofran ) Past Medical History PAST MEDICAL HISTORY: Anxiety, Asthma, Depression, Gallstones, GERD, Seizures Past Medical History (Other): cholecystitis Surgical History: RESORT HOST History: No Pertinent RESORT HOST History Family History Family History: Reviewed,noncontributory to illness, Family hx of Cancer Social History Smoker: Quit Greater Than 1 Year Alcohol: Occasionally Drugs: Marijuana Lives In: Home Gastrointestinal: reports: abdominal pain, nausea, vomiting All Other Systems: Reviewed and Negative (negative unless otherwise stated above or in HPI) Physical Exam General Appearance: No Apparent Distress, Normal HEENT: Normal ENT Inspection, Pharynx Normal, TMs Normal Neck: Full Range of Motion, Non-Tender, Normal, Normal Inspection Respiratory: Chest Non-Tender, Lungs Clear, No Accessory Muscle Use, No Respiratory Distress, Normal Breath Sounds Cardiovascular: No Edema, No JVD, No Murmur, No Gallop, Normal Peripheral Pulses, Regular Rate/Rhythm Breast Exam: Deferred Gastrointestinal: Epigastric (tenderness), No Organomegaly, No Pulsatile Mass, Normal Bowel Sounds, RUQ (tenderness ), Soft, Tenderness Genitalia: Deferred Pelvic: Deferred Rectal: Deferred Extremities: No calf tenderness, Normal capillary refill, Normal inspection, Normal range of motion, Non-tender, No pedal edema Musculoskeletal : Apperance: Normal Neurologic: Alert, photographic artist II-XII nml as Tested, No Motor Deficits, Normal Affect, Normal Mood, No Sensory Deficits Cerebellar Function: Normal Reflexes: Normal Skin: Dry, Normal Color, Warm Lymphatic: No Adenopathy Was a procedure done? Was a procedure done?: No Differential Dx Considerations may include: cholelithiasis, cholecystitis, acute abdomen, , spoiled food, gastritis, gastroenteritis, GERD, PUD X-Ray, Labs, Meds, VS Vital Signs Date Time Temp Pulse Resp B/P (MAP) Pulse Ox O2 Delivery O2 Flow Rate FiO2 10/23/24 00:27 97.8 68 18 118/75 (89) 98 Lab Test 10/23/24 02:52 Range/Units White Blood Count 6.8 4.4-10.8 10^3/uL Red Blood Count 4.78 4.0-5.20 10^6/uL Hemoglobin 12.7 12.2-16.2 g/dL Hematocrit 37.9 36.0-46.0 % Mean Corpuscular Volume 79.2 L 80.0-100.0 fL Mean Corpuscular Hemoglobin 26.5 L 28.0-32.0 pg Mean Corpuscular Hemoglobin Concent 33.5 32.0-36.0 g/dL Red Cell Distribution Width 15.8 H 11.8-14.3 % Platelet Count 204 140-450 10^3/uL Mean Platelet Volume 9.5 6.9-10.8 fL Neutrophils (%) (Auto) 71.8 37.0-80.0 % Lymphocytes (%) (Auto) 20.9 10.0-50.0 % Monocytes (%) (Auto) 5.2 0.0-12.0 % Eosinophils (%) (Auto) 1.6 0.0-7.0 % Basophils (%) (Auto) 0.5 0.0-2.0 % Neutrophils # (Auto) 4.9 1.6-8.6 10 ^3/uL Lymphocytes # (Auto) 1.4 0.4-5.4 10 ^3/uL Monocytes # (Auto) 0.4 0-1.3 10 ^3/uL Eosinophils # (Auto) 0.1 0-0.8 10 ^3/uL Basophils # (Auto) 0 0-0.2 10 ^3/uL Nucleated Red Blood Cells 0.0 % Sodium Level 144 136-145 mmol/L Potassium Level 4.1 3.5-5.1 mmol/L Chloride Level 109 H 98-107 mmol/L Carbon Dioxide Level 29 20-31 mmol/L Anion Gap 6 5-15 Blood Urea Nitrogen 14 9-23 mg/dL Creatinine 0.80 0.550-1.02 mg/dL Glomerular Filtration Rate Calc 104 >90 mL/min BUN/Creatinine Ratio 17.5 10.0-20.0 Serum Glucose 127 H 74-106 mg/dL Calcium Level 10.4 8.7-10.4 mg/dL Total Bilirubin 1.6 H 0.2-1.0 mg/dL Aspartate Amino Transferase (AST) 720 H 13-40 U/L Alanine Aminotransferase (ALT) 786 H 7-40 U/L Alkaline Phosphatase 188 H 46-116 U/L Total Protein 7.1 5.7-8.2 g/dL Albumin 4.9 H 3.2-4.8 g/dL [place] [id number] Ph: [phone] DIAGNOSTIC IMAGING Diagnostic Imaging Report : [id number] Signed PATIENT: JS REEVES ACCT: [id number] UNIT: [id number] : 2000 LOC: ER ROOM / BED: / AGE / SEX: 24 / F ADM STATUS: REG ER SERVICE [id number] ORDERING PHYSICIAN: GUSTAVO CRISTINA MD PROCEDURE(s): ABPL - CT AB PEL WO CON-NO ORAL OR IV REASON: abd pain ORDER NUMBER(s): [id number], ACCESSION NUMBER(s): [id number] Examination: ABPL CLINICAL INDICATION: ;abd pain DIREAS;Reason for Exam: Ambulatory;Ambulatory;Modes of Transportation DITRANS;How is patient transported? ;09-29- ITS.LMP;Last menstrual period: U;Unknown;Yes/No/Unknown ITS.PREG;? COMPARISON: None. CONTRAST USED: None. TECHNIQUE: A plain CT study of the abdomen and pelvis is performed. The examination was performed with [address] scan was done according to ALARA (As Low as Reasonably Achievable). Multiplanar reconstructions were obtai layne. FINDINGS: CT ABDOMEN Lung Bases: The evaluation of lung bases demonstrates no focal infiltrates or pleural effusion. Unenhanced Liver: Normal-sized liver with normal attenuation. No obvious focal lesion in liver. There is no intrahepatic biliary radicle dilatation. Gallbladder: Gallbladder appears unremarkable. No intraluminal pathology. The common bile duct is not dilated. Unenhanced Pancreas: The pancreas is normal in size and shape. No focal lesion is seen within. The peripancreatic fat-planes are normal. Unenhanced Spleen: The spleen is normal in size and does not show any focal abnormality. Retroperitoneum: Both adrenal glands are normal in size and morphology in this unenhanced CT scan. There is no significant retroperitoneal lymphadenopathy. The kidneys are normal in size. No renal calculus or hydronephrosis. Perinephric spaces are clear. Vessels: Aorta, IVC and the mesenteric vessels cannot be commented in this unenhanced CT scan. Stomach and Bowel: The bowel loops are unremarkable. There is no ascites. Skeletal System: No acute osseous abnormality or focal osseous lesion. CT PELVIS Appendix: Appendix is visualized and appears unremarkable. Colon: Large bowel loops appear unremarkable. No evidence of diverticulosis or diverticulitis. No inflammatory bowel wall thickening. Bladder: The urinary bladder is unremarkable. Pelvic Organ: Uterus and ovaries appear unremarkable. Intrauterine contraceptive device is identified. No pelvic lymphadenopathy is identified. No abnormal fluid collection is seen. IMPRESSION: 1. No acute intra-abdominal pathology. No abdominal fat stranding or collection. 2. Gallbladder, pancreas and appendix appear unremarkable. No evidence of renal or ureteric calculus. 3. Small and large bowel loops appear grossly unremarkable. No inflammatory bowel wall thickening. No features of bowel obstruction. Electronically Signed 10/23/2024 04:17 Gilbert Cantu ATED BY: PEPE PROCTOR MD DICTATED DATE/TIME: 10/23/24416 SIGNED BY: PEPE PROCTOR MD SIGNED DATE/TIME: 10/23/24416 CC: CBC is normal LFTs are elevated UA be admitted to the hospitalist for further evaluation and care. Ultrasound is pending Time of 1ST Reevaluation: 00:55 Reevaluation 1ST: Unchanged Patient Education/Counseling: Diagnosis, Treatment Family Education/Counseling: No Family Present Departure 1 Departure Time of Disposition: 06:00 Impression: Primary Impression: ABDOMINAL PAIN Additional Impression: LFTs abnormal Disposition: 30 STILL A PATIENT Condition: Guarded Comments He was endorsed to Dr. PALM Critical Care Note Critical Care Time?: No Stability Stability form required: No Heart Score Heart Score: Heart Score Response (Comments) Value History N/A 0 EKG N/A 0 Age N/A 0 Risk Factors N/A 0 Troponin N/A 0 Total 0 I personally scribed for GUSTAVO CRISTINA MD ([email or web address]) on 10/23/24 at 01:10. Electronically submitted by Elgin Montalvo ([email or web address]). I personally scribed for GUSTAVO CRISTINA MD ([email or web address]) on 10/23/24 at 05:24. Electronically submitted by Elgin Montalvo ([email or web address]). GUSTAVO CRISTINA MD Oct 23, 2024 01:10
[2024-10-23 03:05] LABS: Basophils # (auto) 0 10 ^3/uL (0-0.2); Basophils % (auto) 0.5 % (0.0-2.0); Eosinophils # (auto) 0.1 10 ^3/uL (0-0.8); Eosinophils % (auto) 1.6 % (0.0-7.0); Hematocrit 37.9 % (36.0-46.0); Hemoglobin 12.7 g/dL (12.2-16.2); Lymphocytes # (auto) 1.4 10 ^3/uL (0.4-5.4); Lymphocytes % (auto) 20.9 % (10.0-50.0); Mean Corpuscular Hemoglobin 26.5 pg (28.0-32.0); Mean Corpuscular Hgb Conc. 33.5 g/dL (32.0-36.0); Mean Corpuscular Volume 79.2 fL (80.0-100.0); Monocytes # (auto) 0.4 10 ^3/uL (0-1.3); Monocytes % (auto) 5.2 % (0.0-12.0); Neutrophils # (auto) 4.9 10 ^3/uL (1.6-8.6); Neutrophils % (auto) 71.8 % (37.0-80.0); Platelet Count (auto) 204 10^3/uL (140-450); Red Blood Cells 4.78 10^6/uL (4.0-5.20); Red Cell Distribution Width 15.8 % (11.8-14.3); White Blood Cell 6.8 10^3/uL (4.4-10.8)
[2024-10-23 03:23] LABS: Anion Gap 6 (5-15); BUN/Creatinine Ratio 17.5 (10.0-20.0); Blood Urea Nitrogen 14 mg/dL (9-23); Calcium 10.4 mg/dL (8.7-10.4); Carbon Dioxide 29 mmol/L (20-31); Potassium 4.1 mmol/L (3.5-5.1); Sodium 144 mmol/L (136-145)
[2024-10-23 03:24] LABS: Total Protein 7.1 g/dL (5.7-8.2)
[2024-10-23 03:43] LABS: Alanine Aminotransferase 786 U/L (7-40); Albumin 4.9 g/dL (3.2-4.8); Alkaline Phosphatase 188 U/L (46-116); Aspartate Aminotransferase 720 U/L (13-40); Bilirubin, Total 1.6 mg/dL (0.2-1.0); Chloride 109 mmol/L (98-107); Glucose 127 mg/dL (74-106)
--- NOTE | 2024-10-23 04:17 | DVH ---
Examination: ABPL CLINICAL INDICATION: ;abd pain DIREAS;Reason for Exam: Ambulatory;Ambulatory;Modes of Transportation DITRANS;How is patien t transported? ;09-29-24 ITS.LMP;Last menstrual period: U;Unknown;Yes/No/Unknown ITS.PREG;? COMPARISON: None. CONTRAST USED: None. TECHNIQUE: A plain CT study of the abdomen and pelvis is performed. The examination was performed w ith [address] scan was done according to ALARA (As Low as Reasonably Achievable). Multip lanar reconstructions were obtained. FINDINGS: CT ABDOMEN Lung Bases: The evaluation of lung bases demonstrates no focal infiltrates or pleural effusion. Unenhanced Liver: Normal-sized liver with normal attenuation. No obvious focal lesion in liver. Th ere is no intrahepatic biliary radicle dilatation. Gallbladder: Gallbladder appears unremarkable. No intraluminal pathology. The common bile duct is not dilated. Unenhanced Pancreas: The pancreas is normal in size and shape. No focal lesion is seen within. The peripancreatic fat-planes are normal. Unenhanced Spleen: The spleen is normal in size and does not show any focal abnormality. Retroperitoneum: Both adrenal glands are normal in size and morphology in this unenhanced CT scan. There is no significant retroperitoneal lymphadenopathy. The kidneys are normal in size. No renal c alculus or hydronephrosis. Perinephric spaces are clear. Vessels: Aorta, IVC and the mesenteric vessels cannot be commented in this unenhanced CT scan. Stomach and Bowel: The bowel loops are unremarkable. There is no ascites. Skeletal System: No acute osseous abnormality or focal osseous lesion. CT PELVIS Appendix: Appendix is visualized and appears unremarkable. Colon: Large bowel loops appear unremarkable. No evidence of diverticulosis or diverticulitis. No inflammatory bowel wall thickening. Bladder: The urinary bladder is unremarkable. Pelvic Organ: Uterus and ovaries appear unremarkable. Intrauterine contraceptive device is identifi ed. No pelvic lymphadenopathy is identified. No abnormal fluid collection is seen. IMPRESSION: 1. No acute intra-abdominal pathology. No abdominal fat stranding or collection. 2. Gallbladder, pancreas and appendix appear unremarkable. No evidence of renal or ureteric calculu s. 3. Small and large bowel loops appear grossly unremarkable. No inflammatory bowel wall thickening. No features of bowel obstruction. Electronically Signed 10/23/2024 04:17 Gilbert Cantu
[2024-10-23 08:15] LABS: Urine Bacteria None Seen /hpf (None Seen)
[2024-10-23 08:37] LABS: Amphetamine Screen, Urine Neg (NEGATIVE); Barbiturate Scree,Urine Neg (NEGATIVE); Benzodiazephine Screen, Urine Neg (NEGATIVE); Cocaine Screen, Urine Neg (NEGATIVE); Opiate Scree,Urine Neg (NEGATIVE)
[2024-10-23 08:38] LABS: Cannabinoid Screen, Urine Pos (NEGATIVE); Phencyclidine Screen, Urine Neg (NEGATIVE); Urine Blood Negative /uL (Negative); Urine Clarity Clear (Clear); Urine Color Dark-Yellow (Yellow); Urine Mucus FEW (None Seen); Urine Protein, UAD 1+ (Negative); Urine Specific Gravity 1.031 (1.001-1.035); Urine Squamous Epithelial Cell FEW /hpf (<5); Urine Urobilinogen Normal (Negative); Urine WBC 2 /hpf (0 - 5); Urine pH 7.5 (5.0-9.0)
--- NOTE | 2024-10-23 08:42 | DVH ---
Procedure: US GALLBLADDER 10/23/2024 07:40 AM Indication: r/o gs with biliary obstruction Comparison: Scan 10/23/2024 Technique: Grayscale and color images of the right upper quadrant were obtained. FINDINGS: ASCITES: None. LIVER: Liver measures 16.5 cm in craniocaudal. Liver parenchyma is homogeneous in echotexture. No fo cha lesion is identified. No intrahepatic ductal dilatation. Normal directional flow is seen in the portal vein. GALLBLADDER: Multiple mobile gallstones are seen. There is gallbladder wall thickening measuring up t o 0.5 cm small amount of pericholecystic fluid. Sonographic Cortez's sign is negative. COMMON BILE DUCT: 0.4 cm in caliber. PANCREAS: Visualized portions are unremarkable. RIGHT KIDNEY: Normal in size, 10.5 cm in length. without hydronephrosis. No focal lesions identified. AORTA, IVC: Visualized portions are unremarkable. OTHER: None. IMPRESSION: 1. Cholelithiasis with thickened gallbladder wall and pericholecystic fluid with negative sonographic cortez's sign. The findings may reflect acute or chronic cholecystitis. Negative sonographic cortez 's sign may be related to analgesic medications. Correlate with history. Suggest further evaluation with HIDA scan.
[2024-10-23] MEDS: metroNIDAZOLE 500MG/100ML 100 ML IV ONE (09:00)
--- NOTE | 2024-10-23 09:50 | DVHHP2 ---
History of Present Illness Reason for Visit: Abdominal pain History of Present Illness Yina Chaudhari is a 24-year-old female with past medical history of depression, asthma, anxiety, seizures, cholelithiasis, GERD, polysubstance abuse, bipolar disorder, PTSD, and who presents to the ED for abdominal pain, nausea, vomiting x1 week. Patient reports that when she eats it gets worse also her pain is dull constant and 4/10. Patient states there are no alleviating factors. Patient reports that her last seizure was this morning as she has been taking Keppra as prescribed by her primary. Patient also reports that she has an IUD in place since August and takes medroxyprogesterone for her bleeding. Patient also reports that she drinks occasionally and smokes marijuana but no other drug use. Patient reports that she was trying to get surgery but her the surgeon that she was referred to is not contracted with her insurance and she is here for an evaluation. Patient denies any chest pain, shortness of breath, fever, chills, lightheadedness, weakness, dizziness, and headaches. Pulmonary: Asthma [employer]: Seizure Psych: Anxiety, Bipolar, Depression, Other (PTSD) Past Surgical History: Smoke: No ALCOHOL: occassional Drugs: Marijuana Lives: with Family Domestic Violence: Neg Review of Systems Constitutional: No: Fever, Chills, Sweats, Weakness, Malaise, Other Eyes: No: Pain, Vision change, Conjunctivae inflammation, Eyelid inflammation, Other, Redness ENT: No: Ear pain, Ear discharge, Nose pain, Nose discharge, Nose congestion, Mouth pain, Mouth swelling, Throat pain, Throat swelling, Other Respiratory: No: Cough, Dry, Shortness of breath, SOB with excertion, Wheezing, Hemoptysis, Pleuritic Pain, Sputum, Wheezing, Other Cardiovascular: No: Chest Pain, Palpitations, Orthopnea, Paroxysmal Noc. Dyspnea, Edema, Lt Headedness, Other Gastrointestinal: Nausea, Vomiting, Abdominal Pain; No: Diarrhea, Constipation, Melena, Hematochezia, Other Genitourinary: No Dysuria, No Frequency, No Incontinence, No Hematuria, No Retention, No Other Musculoskeletal: No: other, neck pain, shoulder pain, arm pain, back pain, hand pain, leg pain, foot pain Skin: No: Rash, Lesions, Jaundice, Bruising, Other Neurological: No: Weakness, Numbness, Incoordination, Change in speech, Confusion, Seizures, Other Allergies: Coded Allergies: Avocado (Verified Allergy, Unknown, 04/19/24) Coconut (Cocos Nucifera) (Verified Allergy, Unknown, 04/19/24) Phenytoin (Verified Allergy, Unknown, 04/19/24) Valproic Acid (Verified Allergy, Unknown, 12/22/23) Exam Vital Signs Vital Signs Date Time Temp Pulse Resp B/P (MAP) Pulse Ox O2 Delivery O2 Flow Rate FiO2 10/23/24 08:21 98 Room Air* 0 21 10/23/24 08:14 69 18 10/23/24 08:14 97.7 110/64 (79) 97.7 General Appearance: Alert, Oriented X3, Cooperative, mild distress HEENT: Atraumatic, PERRLA, EOMI, Mucous membr. moist/pink Respiratory: Clear to auscultation, Normal air movement Cardiovascular: Regular rate, Normal S1, Normal S2, No murmurs Abdominal: Soft, No hepatospenomegaly, No masses Extremities: No clubbing, No cyanosis, No edema, Normal pulses, No tenderness/swelling Skin: No rashes, No breakdown, No significant lesion Neuro: Normal gait, Normal speech, Strength at 5/5 X4 ext, Normal tone, Sensation intact Psych/Mental Status: Mental status NL, Mood NL Labs/Xrays Labs Test 10/23/24 06:58 10/23/24 02:52 Range/Units Urine Color Dark-yellow Yellow Urine Clarity Clear Clear Urine pH 7.5 5.0-9.0 Urine Specific Lydia 1.031 1.001-1.035 Urine Protein 1+ H Negative Urine Ketones Negative Negative Urine Blood Negative Negative /uL Urine Nitrite Negative Negative Urine Bilirubin 1+ H Negative Urine Urobilinogen Normal Negative mg/dL Urine Leukocyte Esterase Negative Negative /uL Urine RBC 1 0 - 4 /hpf Urine WBC 2 0 - 5 /hpf Urine Squamous Epithelial Cells Few <5 /hpf Urine Bacteria None seen None Seen /hpf Urine Mucus Few None Seen Urine Glucose Normal Normal mg/dL Urine Test Negative Negative Urine Opiates Screen Neg NEGATIVE Urine Fentanyl Screen Neg NEGATIVE Urine Barbiturates Screen Neg NEGATIVE Urine Phencyclidine Screen Neg NEGATIVE Urine Amphetamines Screen Neg NEGATIVE Urine Benzodiazepines Screen Neg NEGATIVE Urine Cocaine Screen Neg NEGATIVE Urine Cannabinoids Screen Pos NEGATIVE White Blood Count 6.8 4.4-10.8 10^3/uL Red Blood Count 4.78 4.0-5.20 10^6/uL Hemoglobin 12.7 12.2-16.2 g/dL Hematocrit 37.9 36.0-46.0 % Mean Corpuscular Volume 79.2 L 80.0-100.0 fL Mean Corpuscular Hemoglobin 26.5 L 28.0-32.0 pg Mean Corpuscular Hemoglobin Concent 33.5 32.0-36.0 g/dL Red Cell Distribution Width 15.8 H 11.8-14.3 % Platelet Count 204 140-450 10^3/uL Mean Platelet Volume 9.5 6.9-10.8 fL Neutrophils (%) (Auto) 71.8 37.0-80.0 % Lymphocytes (%) (Auto) 20.9 10.0-50.0 % Monocytes (%) (Auto) 5.2 0.0-12.0 % Eosinophils (%) (Auto) 1.6 0.0-7.0 % Basophils (%) (Auto) 0.5 0.0-2.0 % Neutrophils # (Auto) 4.9 1.6-8.6 10 ^3/uL Lymphocytes # (Auto) 1.4 0.4-5.4 10 ^3/uL Monocytes # (Auto) 0.4 0-1.3 10 ^3/uL Eosinophils # (Auto) 0.1 0-0.8 10 ^3/uL Basophils # (Auto) 0 0-0.2 10 ^3/uL Nucleated Red Blood Cells 0.0 % Sodium Level 144 136-145 mmol/L Potassium Level 4.1 3.5-5.1 mmol/L Chloride Level 109 H 98-107 mmol/L Carbon Dioxide Level 29 20-31 mmol/L Anion Gap 6 5-15 Blood Urea Nitrogen 14 9-23 mg/dL Creatinine 0.80 0.550-1.02 mg/dL Glomerular Filtration Rate Calc 104 >90 mL/min BUN/Creatinine Ratio 17.5 10.0-20.0 Serum Glucose 127 H 74-106 mg/dL Calcium Level 10.4 8.7-10.4 mg/dL Total Bilirubin 1.6 H 0.2-1.0 mg/dL Aspartate Amino Transferase (AST) 720 H 13-40 U/L Alanine Aminotransferase (ALT) 786 H 7-40 U/L Alkaline Phosphatase 188 H 46-116 U/L Total Protein 7.1 5.7-8.2 g/dL Albumin 4.9 H 3.2-4.8 g/dL Procedure: US GALLBLADDER 10/23/2024 07:40 AM Indication: r/o gs with biliary obstruction Comparison: Scan 10/23/2024 Technique: Grayscale and color images of the right upper quadrant were obtained. FINDINGS: ASCITES: None. LIVER: Liver measures 16.5 cm in craniocaudal. Liver parenchyma is homogeneous in echotexture. No focal lesion is identified. No intrahepatic ductal dilatation. Normal directional flow is seen in the portal vein. GALLBLADDER: Multiple mobile gallstones are seen. There is gallbladder wall thickening measuring up to 0.5 cm small amount of pericholecystic fluid. Sonographic Cortez's sign is negative. COMMON BILE DUCT: 0.4 cm in caliber. PANCREAS: Visualized portions are unremarkable. RIGHT KIDNEY: Normal in size, 10.5 cm in length. without hydronephrosis. No foca l lesions identified. AORTA, IVC: Visualized portions are unremarkable. OTHER: None. IMPRESSION: 1. Cholelithiasis with thickened gallbladder wall and pericholecystic fluid with negative sonographic cortez's sign. The findings may reflect acute or chronic cholecystitis. Negative sonographic cortez's sign may be related to analgesic medications. Correlate with history. Suggest further evaluation with HIDA scan. Examination: ABPL CLINICAL INDICATION: ;abd pain DIREAS;Reason for Exam: Ambulatory;Ambulatory;Modes of Transportation DITRANS;How is patient transported? ;09-29-24 ITS.LMP;Last menstrual period: U;Unknown;Yes/No/Unknown ITS.PREG;? COMPARISON: None. CONTRAST USED: None. TECHNIQUE: A plain CT study of the abdomen and pelvis is performed. The examination was performed with [address] scan was done according to ALARA (As Low as Reasonably Achievable). Multiplanar reconstructions were obtained. FINDINGS: CT ABDOMEN Lung Bases: The evaluation of lung bases demonstrates no focal infiltrates or pleural effusion. Unenhanced Liver: Normal-sized liver with normal attenuation. No obvious focal lesion in liver. There is no intrahepatic biliary radicle dilatation. Gallbladder: Gallbladder appears unremarkable. No intraluminal pathology. The common bile duct is not dilated. Unenhanced Pancreas: The pancreas is normal in size and shape. No focal lesion is seen within. The peripancreatic fat-planes are normal. Unenhanced Spleen: The spleen is normal in size and does not show any focal abnormality. Retroperitoneum: Both adrenal glands are normal in size and morphology in this unenhanced CT scan. There is no significant retroperitoneal lymphadenopathy. The kidneys are normal in size. No renal calculus or hydronephrosis. Perinephric spaces are clear. Vessels: Aorta, IVC and the mesenteric vessels cannot be commented in this unenhanced CT scan. Stomach and Bowel: The bowel loops are unremarkable. There is no ascites. Skeletal System: No acute osseous abnormality or focal osseous lesion. CT PELVIS Appendix: Appendix is visualized and appears unremarkable. Colon: Large bowel loops appear unremarkable. No evidence of diverticulosis or diverticulitis. No inflammatory bowel wall thickening. Bladder: The urinary bladder is unremarkable. Pelvic Organ: Uterus and ovaries appear unremarkable. Intrauterine contraceptive device is identified. No pelvic lymphadenopathy is identified. No abnormal fluid collection is seen. IMPRESSION: 1. No acute intra-abdominal pathology. No abdominal fat stranding or collection. 2. Gallbladder, pancreas and appendix appear unremarkable. No evidence of re nal or ureteric calculus. 3. Small and large bowel loops appear grossly unremarkable. No inflammatory bowel wall thickening. No features of bowel obstruction. Assessment/Plan Assessment/Plan Assessment/Plan: Intractable abdominal pain r/o cholecystitis Transaminitis Proteinuria Ultrasound gallbladder CT abdomen and pelvis noted HIDA scan HCG noted UDS UA Echo done on August 08, 2024 EF 55% Labs A.m. labs Antiemetics Pain management IV antibiotics General surgery consult lipase Chronic asthma Respiratory treatments Chronic depression Chronic anxiety Monitor Follow up outpatient with PCP History of seizures Continue home medications Chronic GERD Protonix Polysubstance abuse Counseled patient on cessation of polysubstance use FEN/PPX NPO IVf DVT prophylaxis not indicated patient ambulating PUD prophylaxis - protonix Admit to med surg Home medications reconciled Discussed plan of care with patient and nurse Plan discussed with: Patient My Orders Orders - TOYA CHEUNG Procedure Category Date Status Time Nm Hida Scan NM 10/23/24 Logged 09:44 Admit ADMIT 10/23/24 Transmitted 09:45 Allergies SAM 10/23/24 In Process 09:45 Code Status CODE 1/8/25 Transmitted 09:45 Sodium Chloride 0.9% PHA 10/23/24 Logged 09:45 Hydrocodone-Acet PHA 10/23/24 Logged 5/325mg Tab ([place] 09:45 Ondansetron Hcl PHA 10/23/24 Logged (Zofran) 09:45 Complete Blood Count LAB 10/24/24 Verified 04:00 Comprehensive LAB 10/24/24 Verified Metabolic Panel 04:00 Npo (Nothing By DIET 10/23/24 Transmitted Mouth) Diet Lunch Acetaminophen Tablet PHA 10/23/24 Logged (Tylenol Tablet) 09:45 Morphine Sulfate PHA 10/23/24 Logged Injection 09:45 Date of Service: Oct 23, 2024 Billing Provider: TOYA CHEUNG Common Visit Codes: [id number] INP/OBS CARE (HIGH) TOYA CHEUNG Oct 23, 2024 09:50
[2024-10-23] MEDS: PIPERACILLIN-TAZOB 3.375GM 100 ML IV ONE (10:11)
[2024-10-23] MEDS ORDERED: MEDR10TA9 PO (10:53)
[2024-10-23] MEDS: SODIUM CHLORIDE 0.9% 1,000 ML IV SCH (11:42)
[2024-10-23] MEDS: ACETAMINOPHEN 325 MG TAB PO PRN (14:29)
[2024-10-23] MEDS: metroNIDAZOLE 500MG/100ML 100 ML IV SCH (14:35)
--- NOTE | 2024-10-23 15:04 | DVHINCON2 ---
Date of service: Oct 23, 2024 Family History: Alcoholism FATHER Bipolar disorder FATHER Drug abuse FATHER History of Darrell de la Tourette's syndrome FATHER Allergies: Coded Allergies: Avocado (Verified Allergy, Unknown, 04/19/24) Coconut (Cocos Nucifera) (Verified Allergy, Unknown, 04/19/24) Phenytoin (Verified Allergy, Unknown, 04/19/24) Valproic Acid (Verified Allergy, Unknown, 12/22/23) Home Meds Active Scripts Tramadol HCl (Tramadol HCl) 50 Mg Tab, 50 MG PO TIDPRN PRN for 5 Days, #15 TAB Prov:DORCAS CARVAJAL MD 08/12/24 Ondansetron Odt 4MG Tab (ZOFRAN PO) 4 Mg Tb, 4 MG PO TIDPRN PRN for 7 Days, #21 TAB 0 Refills as needed for nausea; ODT TAB-DISSOLVE IN MOUTH, THEN SWALLOW Prov:DORCAS CARVAJAL MD 08/12/24 Pantoprazole Sodium Sesquihydr (Protonix) 40 Mg Tab, 40 MG PO DAILY for 30 Days, #30 TAB 1 Refill Prov:DORCAS CARVAJAL MD 08/09/24 Simethicone (Simethicone) 80 Mg Chw, 1 TAB PO Q8HR, #10 TAB Prov:ANNE BLOUNT MD 08/04/24 Pantoprazole Sodium Sesquihydr (Pantoprazole Sodium Dr) 40 Mg Tab, 40 MG PO DAILY, #20 TAB Prov:ANNE BLOUNT MD 08/04/24 Nitrofurantoin (Nitrofurantoin) 100 Mg Cap, 1 CAP PO BID, #10 CAP Prov:ANNE BLOUNT MD 08/04/24 Lactulose (Lactulose) 10 Gm/15 Ml Cristiana, 10 GM PO BIDP PRN, #150 ML Prov:JAY TURNER PAC 12/23/23 Albuterol Sulfate (Albuterol Sulfate Hfa) 108 Mcg/Act Aer, 108 MCG IN TID, #90 AER Prov:MICHELLE CASTELLANOS PA 01/06/23 Reported Medications Medroxyprogesterone Acetate (Medroxyprogesterone Aceta) 10 Mg Tab, 1 TAB PO DAILY 10/23/24 Discontinued Reported Medications Ziprasidone Hydrochloride (Geodon) 80 Mg Cap, 80 MG PO DAILY, CAP 05/22/14 Quetiapine Fumerate (Seroquel) 50 Mg Tab, 50 MG PO, TAB 05/22/14 Current Medications Current Medications Medications (Trade) Dose Ordered Sig/Maco Route PRN Reason Start Time Stop Time Status Last Admin Sodium Chloride 1,000 ml @ 70 mls/hr [id number] IV 10/23/24 09:45 10/23/24 11:42 Acetaminophen/ Hydrocodone Bitart (Biddle 5/325MG Tab) 1 tab Q4HP PRN PO MODERATE PAIN (4-6 PAIN SCALE) 10/23/24 09:45 Ondansetron HCl (Zofran) 4 mg Q4HP PRN IV NAUSEA / VOMITING 10/23/24 09:45 Acetaminophen (Tylenol Tablet) 650 mg Q6HP PRN PO PAIN SCALE 1-3 OR TEMP>100.4 10/23/24 09:45 10/23/24 14:29 Morphine Sulfate 2 mg Q4HPRN PRN IV SEVERE PAIN (7-10 PAIN SCALE) 10/23/24 09:45 Piperacillin Sod/ Tazobactam Sod 100 ml @ 25 mls/hr Q8HR IV 10/23/24 14:00 Metronidazole 100 ml @ 100 mls/hr Q8HR IV 10/23/24 14:00 10/23/24 14:35 Levetiracetam (Keppra Tablet) 500 mg BID PO 10/23/24 22:00 Albuterol (Ventolin Medneb) 2.5 mg Q4HPRN PRN NEB SHORTNESS OF BREATH 10/23/24 11:00 Ipratropium [place] (Atrovent Medneb) 0.5 mg Q4HPRN PRN NEB SHORTNESS OF BREATH 10/23/24 11:00 Vital Signs Vital Signs Date Time Temp Pulse Resp B/P (MAP) Pulse Ox O2 Delivery O2 Flow Rate FiO2 10/23/24 13:51 98.2 63 18 108/69 (82) 100 98.2 10/23/24 08:21 Room Air* 0 21 Labs/Diagnostic Data Labs Test 10/23/24 06:58 10/23/24 02:52 Range/Units Urine Color Dark-yellow Yellow Urine Clarity Clear Clear Urine pH 7.5 5.0-9.0 Urine Specific [place] 1.031 1.001-1.035 Urine Protein 1+ H Negative Urine Ketones Negative Negative Urine Blood Negative Negative /uL Urine Nitrite Negative Negative Urine Bilirubin 1+ H Negative Urine Urobilinogen Normal Negative mg/dL Urine Leukocyte Esterase Negative Negative /uL Urine RBC 1 0 - 4 /hpf Urine WBC 2 0 - 5 /hpf Urine Squamous Epithelial Cells Few <5 /hpf Urine Bacteria None seen None Seen /hpf Urine Mucus Few None Seen Urine Glucose Normal Normal mg/dL Urine Test Negative Negative Urine Opiates Screen Neg NEGATIVE Urine Fentanyl Screen Neg NEGATIVE Urine Barbiturates Screen Neg NEGATIVE Urine Phencyclidine Screen Neg NEGATIVE Urine Amphetamines Screen Neg NEGATIVE Urine Benzodiazepines Screen Neg NEGATIVE Urine Cocaine Screen Neg NEGATIVE Urine Cannabinoids Screen Pos NEGATIVE White Blood Count 6.8 4.4-10.8 10^3/uL Red Blood Count 4.78 4.0-5.20 10^6/uL Hemoglobin 12.7 12.2-16.2 g/dL Hematocrit 37.9 36.0-46.0 % Mean Corpuscular Volume 79.2 L 80.0-100.0 fL Mean Corpuscular Hemoglobin 26.5 L 28.0-32.0 pg Mean Corpuscular Hemoglobin Concent 33.5 32.0-36.0 g/dL Red Cell Distribution Width 15.8 H 11.8-14.3 % Platelet Count 204 140-450 10^3/uL Mean Platelet Volume 9.5 6.9-10.8 fL Neutrophils (%) (Auto) 71.8 37.0-80.0 % Lymphocytes (%) (Auto) 20.9 10.0-50.0 % Monocytes (%) (Auto) 5.2 0.0-12.0 % Eosinophils (%) (Auto) 1.6 0.0-7.0 % Basophils (%) (Auto) 0.5 0.0-2.0 % Neutrophils # (Auto) 4.9 1.6-8.6 10 ^3/uL Lymphocytes # (Auto) 1.4 0.4-5.4 10 ^3/uL Monocytes # (Auto) 0.4 0-1.3 10 ^3/uL Eosinophils # (Auto) 0.1 0-0.8 10 ^3/uL Basophils # (Auto) 0 0-0.2 10 ^3/uL Nucleated Red Blood Cells 0.0 % Sodium Level 144 136-145 mmol/L Potassium Level 4.1 3.5-5.1 mmol/L Chloride Level 109 H 98-107 mmol/L Carbon Dioxide Level 29 20-31 mmol/L Anion Gap 6 5-15 Blood Urea Nitrogen 14 9-23 mg/dL Creatinine 0.80 0.550-1.02 mg/dL Glomerular Filtration Rate Calc 104 >90 mL/min BUN/Creatinine Ratio 17.5 10.0-20.0 Serum Glucose 127 H 74-106 mg/dL Calcium Level 10.4 8.7-10.4 mg/dL Total Bilirubin 1.6 H 0.2-1.0 mg/dL Aspartate Amino Transferase (AST) 720 H 13-40 U/L Alanine Aminotransferase (ALT) 786 H 7-40 U/L Alkaline Phosphatase 188 H 46-116 U/L Total Protein 7.1 5.7-8.2 g/dL Albumin 4.9 H 3.2-4.8 g/dL Lipase 54 H 12-53 U/L Assessment [id number] R/O AC CHOLECYSTITIS R/O CBD STONE ELEVATED LFT MRCP CONSIDER LAP/OPEN MERCY BASED ON ONGOING EVAL WITH LFT TRENDING DOWN Plan discussed with: Patient AARON SEGUNDO MD Oct 23, 2024 15:04
[2024-10-23] MEDS: PIPERACILLIN-TAZOB 3.375GM 100 ML IV SCH (16:02)
--- NOTE | 2024-10-23 17:03 | DVH ---
MRI Abdomen, MRCP without IV Contrast Exam Date: 10/23/2024 04:30 PM Comparison: None History: gallbladder problem Technique: Multisequence multiplanar MRI images were obtained of the abomen. MRCP including 3D SPACE, Radial 3D slabs and SPACE 3D MIP images Findings: Liver: The liver is normal in size without focal lesions. Normal liver contour. Spleen: Unremarkable. Pancreas: The pancreas is normal in appearance without focal lesions. Gallbladder and ducts: Small calculi in the neck of the gallbladder. Mild gallbladder wall thickenin g. The cystic duct, right and left hepatic ducts, common hepatic duct, and common bile ducts are unr emarkable. The pancreatic duct is within normal limits. Adrenal glands: Unremarkable. Kidneys: Normal enhancement without suspicious lesions or hydronephrosis. Visualized bowel: Grossly unremarkable. Vasculature: Unremarkable. Lymphadenopathy: No evidence for lymphadenopathy. Ascites: Absent. Musculoskeletal: Bone marrow signal is normal. IMPRESSION: 1. Cholelithiasis with associated gallbladder wall thickening raising concern for acute cholecystitis . Surgical evaluation is recommended. HS:Ike
--- NOTE | 2024-10-23 18:19 | DVHINCON2 ---
DATE OF CONSULTATION: 10/23/2024 HISTORY OF PRESENT ILLNESS: This patient is 24 years old, coming in with right upper quadrant pain. She has had these episodes for 2 times and was seen in [facility] as well and coming in with the same problem and was told she had a gallbladder problem that she needed surgery. She has history of depression, asthma, anxiety, seizures, polysubstance abuse, bipolar disorder and no nausea or vomiting at this time. No hematemesis, melena. No bleeding per rectum. PAST MEDICAL HISTORY: Seizure activity, asthma, bipolar, depression. PAST SURGICAL HISTORY: . PHYSICAL EXAMINATION: VITAL SIGNS: Afebrile, stable signs. HEENT: With no evidence of pallor, cyanosis, or jaundice. NECK: Supple, nontender with no thyromegaly, lymphadenopathy. CHEST AND LUNGS: Clear. HEART: Within normal limits. ABDOMEN: Soft, tender right upper quadrant. Minimal rebound. EXTREMITIES: Unremarkable. NEUROLOGIC: She is intact. CLINICAL IMPRESSION: Acute cholecystitis. She has elevated liver enzymes, rule out CBD stone. PLAN: Plan will be to consider MRCP before going into surgery and if CBD is negative for gallstones, then allow the enzymes to trend down for me to consider laparoscopic, possible open cholecystectomy. Benefits, risks discussed and a consent obtained. MD SUSY Baldwin/ALEKSANDAR TID: [id number] RECEIPT: [id number] cc: Yehuda Harper
[2024-10-23] MEDS: ONDANSETRON HCL 4 MG/2 ML VIAL IV PRN (19:03)
[2024-10-23] MEDS: levETIRAcetam 500 MG TAB PO SCH (22:27)
[2024-10-23] MEDS: HYDROcodone-ACET 5/325MG TAB PO PRN (22:47)
[2024-10-24] VITALS (9 sets, daily range): BP systolic 100–120; BP diastolic 56–68; PULSE 55–61; RESP 18–19; TEMP 97.7–98.1; O2SAT 96–99
[2024-10-24 07:30] LABS: Basophils # (auto) 0 10 ^3/uL (0-0.2); Basophils % (auto) 0.8 % (0.0-2.0); Eosinophils # (auto) 0.2 10 ^3/uL (0-0.8); Eosinophils % (auto) 3.4 % (0.0-7.0); Hematocrit 33.8 % (36.0-46.0); Hemoglobin 11.4 g/dL (12.2-16.2); Lymphocytes # (auto) 2.3 10 ^3/uL (0.4-5.4); Mean Corpuscular Hemoglobin 26.7 pg (28.0-32.0); Mean Corpuscular Hgb Conc. 33.6 g/dL (32.0-36.0); Mean Corpuscular Volume 79.5 fL (80.0-100.0); Monocytes # (auto) 0.3 10 ^3/uL (0-1.3); Monocytes % (auto) 7.1 % (0.0-12.0); Neutrophils # (auto) 1.8 10 ^3/uL (1.6-8.6); Neutrophils % (auto) 38.7 % (37.0-80.0); Nucleated Red Blood Cells % 0.1 %; Platelet Count (auto) 159 10^3/uL (140-450); Red Blood Cells 4.25 10^6/uL (4.0-5.20); Red Cell Distribution Width 15.5 % (11.8-14.3); White Blood Cell 4.7 10^3/uL (4.4-10.8)
[2024-10-24 07:39] LABS: Anion Gap 7 (5-15); BUN/Creatinine Ratio 12.8 (10.0-20.0); Bilirubin, Total 1.2 mg/dL (0.2-1.0); Blood Urea Nitrogen 11 mg/dL (9-23); Calcium 9.7 mg/dL (8.7-10.4); Carbon Dioxide 25 mmol/L (20-31); Glucose 79 mg/dL (74-106); Potassium 3.5 mmol/L (3.5-5.1); Sodium 142 mmol/L (136-145); Total Protein 6.1 g/dL (5.7-8.2)
[2024-10-24 07:47] LABS: Alanine Aminotransferase 818 U/L (7-40); Alkaline Phosphatase 189 U/L (46-116); Aspartate Aminotransferase 372 U/L (13-40); Chloride 110 mmol/L (98-107)
--- NOTE | 2024-10-24 08:42 | DVH ---
CLINICAL INFORMATION: 24 years old, Female; cholecystitis. Abnormal findings on ultrasound. TECHNIQUE: 5 mCi of Choletec were administered intravenously. Images of the upper abdomen were obta ined at 1 minute intervals up to a total time of 60 minutes. COMPARISON: Ultrasound dated 10/23/2024. MRCP dated 10/23/2024. CT dated 10/23/2024. FINDINGS: Gallbladder is not visualized on initial images obtained up to 60 minutes or on 4 hour del ayed images. No excretion of radiopharmaceutical into the small bowel is seen. IMPRESSION: 1. Gallbladder is not visualized on initial images obtained up to 60 minutes or on delayed images at 4:00 a.m., suspected acute cholecystitis. 2. No excretion of radiopharmaceutical into the small bowel is seen.
[2024-10-24] MEDS ORDERED: MIDAZOLAM HCL 2MG/2ML 2ml VIAL (1mg/ml) ONE (11:06)
[2024-10-24] MEDS ORDERED: ONDANSETRON HCL 4 MG/2 ML VIAL ONE (11:13)
[2024-10-24] MEDS ORDERED: KETOROLAC TROMETH 30 MG/ML 1ML VIAL ONE (11:13)
[2024-10-24] MEDS ORDERED: METOCLOPRAMIDE HCL 5MG/ml INJ 2ml VIAL ONE (11:13)
[2024-10-24] MEDS ORDERED: HYDROmorphone HCL 2 MG/ML VL/or syr ONE (11:16)
[2024-10-24] MEDS ORDERED: SUGAMMADEX 200mg/2ml Vial (100MG/ML) IV ONE ×2 (11:49→11:51)
[2024-10-24] MEDS: BUPIVACAINE 0.25% INJ 50ML VIAL ONE (11:50)
[2024-10-24] MEDS: MIDAZOLAM HCL 2MG/2ML 2ml VIAL (1mg/ml) IV PRN (12:18)
--- NOTE | 2024-10-24 12:22 | DVHOP2 ---
Operative Report [id number] AC CHOLECYSTITIS LAP MERCY EBL 5 CC NO DRAINS NO COMPLICATIONS AARON SEGUNDO MD Oct 24, 2024 12:22
--- NOTE | 2024-10-24 12:40 | DVHOP ---
DATE OF SURGERY: 10/24/2024 DATE OF OPERATION: 10/24/2024 HISTORY: A 24 years old, coming in with right upper quadrant pain. PREOPERATIVE DIAGNOSIS: Acute cholecystitis. POSTOPERATIVE DIAGNOSIS: Acute cholecystitis. PROCEDURE: Laparoscopic cholecystectomy. SURGEON: Cesar Victor MD. COLD ROLL INSPECTOR: None. ANESTHESIA: General. ESTIMATED BLOOD LOSS: Close to 5 mL. DRAINS: No drains were used. COMPLICATIONS: No complications were encountered. DESCRIPTION OF PROCEDURE: The patient was prepped and draped in the usual sterile fashion in the supine position and a supraumbilical incision was applied, was taken down to the fascia. The Veress needle was introduced and CO2 insufflation was started to a pressure of 15 mmHg. The needle was withdrawn, replaced by the 5 mm trocar and a telescope was introduced and the gallbladder was found to be acutely inflamed, distended and patient was placed in the head up and right upper lateral position. A 12 mm port was applied close to the xiphisternum and two 5 mm ports were applied more laterally in subcostal line with instruments in place. The gallbladder was grasped at the fundus and infundibulum. The cystic duct and artery were , dissected out and clipped proximally and distally using Hem-o-Carmen clips and divided in between making sure CBD was kept out of harm's way at all times and gallbladder was detached from the liver bed using Harmonic dissection, placed in the EndoCatch bag and removed from the xiphisternal wound without any complication. Hemostasis was secured. Irrigation fluid was removed. The port sites were free from bleeding. EndoClose suture used for the fascial closure of the xiphisternal wound. All the ports were withdrawn after all the CO2 had been let out and the patient was placed in supine. The wounds were then brought together using 3-0 Monocryl suture in a subcuticular fashion. Surgical glue was applied. The patient tolerated the procedure well and was taken back to recovery room in stable condition. MD SUSY Baldwin/SEAMUS TID: [id number] RECEIPT: [id number]
[2024-10-24] MEDS: HYDROmorphone HCL 2 MG/ML VL/or syr IV PRN (12:46)
[2024-10-24] MEDS: HYDROmorphone HCL 2 MG/ML VL/or syr IV ONE (13:16)
[2024-10-24] MEDS: ONDANSETRON HCL 4 MG/2 ML VIAL IV ONE (14:20)
--- NOTE | 2024-10-24 15:54 | DVHPN2 ---
Progress Note Date Seen: Oct 24, 2024 Medical Necessity Reason Pt with a Central, PICC or Fol: No Subjective Patient reports: No new complaints Review of Systems: HEENT:Normal, CVS:Normal, RESPIRATORY:Normal, GI:Normal, :Normal, MSK:Normal, NEURO:Normal Objective vital signs Vital Sign Date Time Temp Pulse Resp B/P (MAP) Pulse Ox O2 Delivery O2 Flow Rate FiO2 10/24/24 14:25 Nasal Cannula 2.0 99 10/24/24 14:05 54 12 120/66 (84) 98 10/24/24 12:10 97.6 97.6 Total Intake and Output 10/23/24 10/23/24 10/24/24 15:00 23:00 07:00 Intake Total 710 ml 0 ml Balance 710 ml 0 ml medications Current Medications Medications Dose Ordered Sig/Maco Route Start Time Stop Time Status Last Admin Dose Admin Sodium Chloride 1,000 ml @ 70 mls/hr [id number] IV 10/23/24 09:45 10/23/24 11:42 70 MLS/HR Acetaminophen/ Hydrocodone Bitart 1 tab Q4HP PRN PO 10/23/24 09:45 10/23/24 22:47 1 TAB Ondansetron HCl 4 mg Q4HP PRN IV 10/23/24 09:45 10/23/24 19:03 4 MG Acetaminophen 650 mg Q6HP PRN PO 10/23/24 09:45 10/23/24 14:29 650 MG Morphine Sulfate 2 mg Q4HPRN PRN IV 10/23/24 09:45 Piperacillin Sod/ Tazobactam Sod 100 ml @ 25 mls/hr Q8HR IV 10/23/24 14:00 10/24/24 05:47 25 MLS/HR Metronidazole 100 ml @ 100 mls/hr Q8HR IV 10/23/24 14:00 10/24/24 05:38 100 MLS/HR Levetiracetam 500 mg BID PO 10/23/24 22:00 10/23/24 22:27 500 MG Albuterol 2.5 mg Q4HPRN PRN NEB 10/23/24 11:00 Ipratropium [place] 0.5 mg Q4HPRN PRN NEB 10/23/24 11:00 Midazolam HCl 2 mg Q2HP PRN IV 10/24/24 12:30 10/24/24 18:00 10/24/24 12:18 2 MG Examination: GENERAL:Normal, HEENT:Normal, NECK:Normal, LUNGS:Normal, CVS:Normal, ABDOMEN:Normal, MSK:Normal, SKIN:Normal, NEURO:Normal, :Normal laboratory and microbiology Laboratory Tests 10/24/24 05:23 Test 10/24/24 05:23 Range/Units Serum Glucose 79 74-106 mg/dL Problem List/Assessment/Plan Problem List/Assessment/Plan #1 acute andrey s/p lap andrey: ivf, iv antibiotics #2 transaminitis: monitor #3 seizure disorder: cont keppra Plan discussed with: Patient My Orders My Orders Orders - ERIC CHAUDHRY MD Procedure Category Date Status Time Complete Blood Count LAB 10/25/24 Verified 06:00 Date of Service: Oct 24, 2024 Billing Provider: ERIC CHAUDHRY MD Common Visit Codes: [id number] INP/OBS CARE(HIGH) ERIC CHAUDHRY MD Oct 24, 2024 15:53
[2024-10-24] MEDS: MORPHINE SULFATE INJ 2 MG/ml SYRG IV PRN (17:31)
[2024-10-24] MEDS: IPRATROPIUM BROM 0.5 MG/2.5ML INH SOL NEB PRN (18:56)
[2024-10-24] MEDS: ALBUTEROL SULF 2.5 MG/0.5ML(0.5%) NEB SOLN NEB PRN (18:57)
[2024-10-25] VITALS (12 sets, daily range): BP systolic 103–138; BP diastolic 53–83; PULSE 57–65; RESP 17–20; TEMP 97.6–98.3; O2SAT 95–100
[2024-10-25] MEDS: MIDAZOLAM HCL 2MG/2ML 2ml VIAL (1mg/ml) ONE ×2 (07:39→07:40)
[2024-10-25] MEDS: LORazepam 2MG/ML-1ML VIAL ONE (07:40)
[2024-10-25 07:42] LABS: Basophils # (auto) 0 10 ^3/uL (0-0.2); Eosinophils # (auto) 0.1 10 ^3/uL (0-0.8); Lymphocytes # (auto) 2.2 10 ^3/uL (0.4-5.4); Mean Corpuscular Hemoglobin 26.6 pg (28.0-32.0); Monocytes # (auto) 0.4 10 ^3/uL (0-1.3)
[2024-10-25 07:46] LABS: Basophils % (auto) 0.4 % (0.0-2.0); Hematocrit 32.1 % (36.0-46.0); Hemoglobin 10.7 g/dL (12.2-16.2); Lymphocytes % (auto) 34.1 % (10.0-50.0); Mean Corpuscular Hgb Conc. 33.4 g/dL (32.0-36.0); Mean Corpuscular Volume 79.5 fL (80.0-100.0); Monocytes % (auto) 6.4 % (0.0-12.0); Neutrophils # (auto) 3.7 10 ^3/uL (1.6-8.6); Neutrophils % (auto) 57.1 % (37.0-80.0); Nucleated Red Blood Cells % 0.1 %; Platelet Count (auto) 161 10^3/uL (140-450); Red Blood Cells 4.04 10^6/uL (4.0-5.20); White Blood Cell 6.4 10^3/uL (4.4-10.8)
[2024-10-25 08:00] LABS: Albumin 3.9 g/dL (3.2-4.8); Anion Gap 6 (5-15); BUN/Creatinine Ratio 14.3 (10.0-20.0); Blood Urea Nitrogen 10 mg/dL (9-23); Calcium 9.6 mg/dL (8.7-10.4); Carbon Dioxide 27 mmol/L (20-31); Glucose 74 mg/dL (74-106); Potassium 3.8 mmol/L (3.5-5.1); Sodium 141 mmol/L (136-145)
[2024-10-25 08:01] LABS: Bilirubin, Total 0.7 mg/dL (0.2-1.0)
[2024-10-25 08:09] LABS: Alanine Aminotransferase 516 U/L (7-40); Alkaline Phosphatase 172 U/L (46-116); Aspartate Aminotransferase 120 U/L (13-40); Chloride 108 mmol/L (98-107); Total Protein 5.7 g/dL (5.7-8.2)
--- NOTE | 2024-10-25 13:08 | DVHPN2 ---
Progress Note Date Seen: Oct 25, 2024 Medical Necessity Reason Pt with a Central, PICC or Fol: No Objective vital signs Vital Sign Date Time Temp Pulse Resp B/P (MAP) Pulse Ox O2 Delivery O2 Flow Rate FiO2 10/25/24 09:41 98 Room Air* 0 21 10/25/24 09:00 98.0 62 20 124/83 (97) 98.0 Total Intake and Output 10/24/24 10/24/24 10/25/24 15:00 23:00 07:00 Intake Total 500 ml 300 ml Balance 500 ml 300 ml medications Current Medications Medications Dose Ordered Sig/Maco Route Start Time Stop Time Status Last Admin Dose Admin Sodium Chloride 1,000 ml @ 70 mls/hr [id number] IV 10/23/24 09:45 10/23/24 11:42 70 MLS/HR Acetaminophen/ Hydrocodone Bitart 1 tab Q4HP PRN PO 10/23/24 09:45 10/25/24 12:46 1 TAB Ondansetron HCl 4 mg Q4HP PRN IV 10/23/24 09:45 10/25/24 08:12 4 MG Acetaminophen 650 mg Q6HP PRN PO 10/23/24 09:45 10/23/24 14:29 650 MG Morphine Sulfate 2 mg Q4HPRN PRN IV 10/23/24 09:45 10/24/24 17:31 2 MG Piperacillin Sod/ Tazobactam Sod 100 ml @ 25 mls/hr Q8HR IV 10/23/24 14:00 10/25/24 12:45 25 MLS/HR Levetiracetam 500 mg BID PO 10/23/24 22:00 10/25/24 08:04 500 MG Albuterol 2.5 mg Q4HPRN PRN NEB 10/23/24 11:00 10/24/24 18:[address] 0.5 mg Q4HPRN PRN NEB 10/23/24 11:00 10/24/24 18:57 0.5 MG laboratory and microbiology Laboratory Tests 10/25/24 05:20 Test 10/25/24 05:20 Range/Units Serum Glucose 74 74-106 mg/dL Problem List/Assessment/Plan Problem List/Assessment/Plan AFEBRILE VSS ABD SOFT WOUNDS HEALED JOSEPH CLEAR LIQUIDS LFT TRENDING DOWN NO COMPLICATIONS S/P LAP CHOLECYSTECTOMY ADVANCE DIET JOSEPH CLEARED FOR DISCHARGE INSTRUCTIONS RE DIET ACTIVITY F/UP GIVEN Plan discussed with: Patient AARON SEGUNDO MD Oct 25, 2024 13:08
[2024-10-25] MEDS ORDERED: ZOFR4T PO (14:58)
[2024-10-25] MEDS ORDERED: AUG875T PO (14:58)
[2024-10-25] MEDS ORDERED: HYDR-4902 PO (14:58)
[2024-10-25] MEDS: DEXTROSE 50% SYRINGE 50 ML IV ONE (15:15)
[2024-10-25] MEDS: DEXTROSE (50%) 50ML SYRG IV ONE (15:15)
[2024-10-25] MEDS: SODIUM CHLORIDE 0.9% 1,000 ML IV ONE (15:15)
--- NOTE | 2024-10-25 15:36 | DVH ---
EXAM: CT HEAD WITHOUT CONTRAST HISTORY: status post fall COMPARISON: HEAD WITHOUT CONTRAST on DOS: 08/04/22, HEAD WITHOUT CONTRAST on DOS: 05/11/22 TECHNIQUE: Axial images of the head were obtained and reformatted in coronal and sagittal planes. All CT scans at this medical facility are performed using dose modulation techniques as appropriate t o a performed exam including the following: Automated exposure control was utilized; adjustment of th e MA and/or KV according to patient size; and use of iterative reconstruction technique. CT Dose: CTDI volume is 48 mGy. Dose-length product is 884 mGy*cm FINDINGS: There is no evidence of acute intracranial hemorrhage, mass, mass effect midline shift. There is no h ydrocephalus or extra-axial fluid collection. Conner-white matter differentiation is maintained. The visualized paranasal sinuses and mastoid air cells are clear. The calvarium is intact. IMPRESSION: 1. No acute intracranial process. HS:Y
[2024-10-25] MEDS: levETIRAcetam 1000 mg/100ml 100 ML IV ONE (15:41)
--- NOTE | 2024-10-25 15:59 | DVH ---
CHEST RADIOGRAPH Indication: s/p fall Technique: Single frontal view of the chest 3 views of the right ribs are available for evaluation Comparison: None FINDINGS: Lines and Tubes: None Lungs: No focal consolidation. Pleura: No effusion. No pneumothorax. Cardiomediastinal contours: Unremarkable Bones: No acute osseous abnormality. Surgical clips are noted over the right upper abdominal quadrant . IMPRESSION: No acute cardiopulmonary disease. No acute rib fractures.
[2024-10-25 17:09] LABS: Basophils # (auto) 0 10 ^3/uL (0-0.2); Eosinophils # (auto) 0.1 10 ^3/uL (0-0.8); Hematocrit 33.3 % (36.0-46.0); Hemoglobin 11.1 g/dL (12.2-16.2); Lymphocytes # (auto) 2.4 10 ^3/uL (0.4-5.4); Mean Corpuscular Hemoglobin 26.7 pg (28.0-32.0); Mean Corpuscular Hgb Conc. 33.4 g/dL (32.0-36.0); Monocytes # (auto) 0.4 10 ^3/uL (0-1.3); Red Blood Cells 4.17 10^6/uL (4.0-5.20)
[2024-10-25 17:11] LABS: Basophils % (auto) 0.3 % (0.0-2.0); Eosinophils % (auto) 1.7 % (0.0-7.0); Lymphocytes % (auto) 32.5 % (10.0-50.0); Mean Corpuscular Volume 79.9 fL (80.0-100.0); Monocytes % (auto) 5.8 % (0.0-12.0); Neutrophils # (auto) 4.3 10 ^3/uL (1.6-8.6); Neutrophils % (auto) 59.7 % (37.0-80.0); Nucleated Red Blood Cells % 0.1 %; Platelet Count (auto) 182 10^3/uL (140-450); Red Cell Distribution Width 15.3 % (11.8-14.3); White Blood Cell 7.2 10^3/uL (4.4-10.8)
--- NOTE | 2024-10-25 17:12 | DVH ---
CLINICAL INDICATION: S/P Fall TECHNIQUE: 3 radiographic views of the facial bones were obtained. Comparison: None FINDINGS/IMPRESSION: There is no evidence of acute fracture or dislocation. Symptoms persist recommend CT scan of the maxillofacial bones. The visualized joint space is well maintained. The alignment is anatomical. There is no radiopaque foreign body.
[2024-10-25 17:26] LABS: Anion Gap 7 (5-15); BUN/Creatinine Ratio 10.1 (10.0-20.0); Bilirubin, Total 0.8 mg/dL (0.2-1.0); Calcium 9.5 mg/dL (8.7-10.4); Carbon Dioxide 25 mmol/L (20-31); Glucose 98 mg/dL (74-106); Sodium 141 mmol/L (136-145); Total Protein 6.1 g/dL (5.7-8.2)
[2024-10-25 17:27] LABS: Alanine Aminotransferase 428 U/L (7-40); Alkaline Phosphatase 165 U/L (46-116); Aspartate Aminotransferase 79 U/L (13-40); Blood Urea Nitrogen 7 mg/dL (9-23); Chloride 109 mmol/L (98-107); Potassium 3.2 mmol/L (3.5-5.1)
[2024-10-25] MEDS: HYDROcodone-ACET 10/325MG TAB PO PRN (17:34)
--- NOTE | 2024-10-25 23:47 | DVHPN2 ---
Subjective Patient had decreased p.o. tolerance in the morning. Patient was doing well otherwise. Plan for discharge in mid afternoon. Prior to input of discharge instructions and orders, patient has syncopal episode and or perhaps seizure episode. Patient was continued on seizure medications, during rapid response noted to have blood glucose of 70, given her decreased p.o. tolerance. Discharge canceled. We will maintain on fluids and follow up on fall. Reviewed: Care Plan, H&P Changes from previous H/P or p: No Changes General: Per HPI Objective Vitals Vital Signs Date Time Temp Pulse Resp B/P (MAP) Pulse Ox O2 Delivery O2 Flow Rate FiO2 10/25/24 21:00 97.6 61 18 138/71 (93) 96 97.6 10/25/24 20:40 Room Air 0.0 10/25/24 20:40 21 Intake/Output Intake and Output 10/25/24 07:00 Intake Total 800 ml Balance 800 ml Intake Oral 500 ml IV Total 300 ml # Voids 2 Exam GEN: Healthy appearing, well-developed, NAD. HEENT: NC/AT; MMM. CV: RRR, no m/r/g. LUNGS: Bibasilar rales ABD: Tender to palpation on right upper quadrant and near surgical incisions. Bowel sounds are hypoactive. No rigidity, no peritonitis signs.. EXT: skin Warm, well perfused. no rashes. No clubbing, cyanosis, or edema. NEURO: Ambulating with no limitations. No focal deficits. Medications Current Medications Medications Dose Ordered Sig/Maco Route Start Time Stop Time Status Last Admin Dose Admin Sodium Chloride 1,000 ml @ 70 mls/hr [id number] IV 10/23/24 09:45 10/23/24 11:42 70 MLS/HR Ondansetron HCl 4 mg Q4HP PRN IV 10/23/24 09:45 10/25/24 17:40 4 MG Acetaminophen 650 mg Q6HP PRN PO 10/23/24 09:45 10/23/24 14:29 650 MG Morphine Sulfate 2 mg Q4HPRN PRN IV 10/23/24 09:45 10/24/24 17:31 2 MG Piperacillin Sod/ Tazobactam Sod 100 ml @ 25 mls/hr Q8HR IV 10/23/24 14:00 10/25/24 21:46 25 MLS/HR Levetiracetam 500 mg BID PO 10/23/24 22:00 10/25/24 21:45 500 MG Albuterol 2.5 mg Q4HPRN PRN NEB 10/23/24 11:00 10/24/24 18:57 2.5 MG Ipratropium [place] 0.5 mg Q4HPRN PRN NEB 10/23/24 11:00 10/24/24 18:57 0.5 MG Acetaminophen/ Hydrocodone Bitart 1 tab Q4HP PRN PO 10/25/24 16:45 10/25/24 17:34 1 TAB Laboratory Results Laboratory Tests 10/25/24 16:55 Chemistry Test 10/25/24 05:20 10/25/24 16:55 Albumin 3.9 g/dL (3.2-4.8) 4.0 g/dL (3.2-4.8) Calcium Level 9.6 mg/dL (8.7-10.4) 9.5 mg/dL (8.7-10.4) Total Protein 5.7 g/dL (5.7-8.2) 6.1 g/dL (5.7-8.2) LFT Test 10/25/24 05:20 10/25/24 16:55 Alanine Aminotransferase (ALT) 516 U/L (7-40) H 428 U/L (7-40) H Alkaline Phosphatase 172 U/L (46-116) H 165 U/L (46-116) H Aspartate Amino Transferase (AST) 120 U/L (13-40) H 79 U/L (13-40) H Total Bilirubin 0.7 mg/dL (0.2-1.0) 0.8 mg/dL (0.2-1.0) Urinalysis Test 10/23/24 06:58 Urine Color Dark-yellow (Yellow) Urine Clarity Clear (Clear) Urine pH 7.5 (5.0-9.0) Urine Specific [place] 1.031 (1.001-1.035) Urine Protein 1+ (Negative) H Urine Ketones Negative (Negative) Urine Blood Negative /uL (Negative) Urine Nitrite Negative (Negative) Urine Bilirubin 1+ (Negative) H Urine Urobilinogen Normal mg/dL (Negative) Urine Leukocyte Esterase Negative /uL (Negative) Urine RBC 1 /hpf (0 - 4) Urine WBC 2 /hpf (0 - 5) Urine Squamous Epithelial Cells Few /hpf (<5) Urine Bacteria None seen /hpf (None Seen) Urine Mucus Few (None Seen) Urine Glucose Normal mg/dL (Normal) Urine Test Negative (Negative) Labs and/or images reviewed: Labs reviewed by me, Image(s) reviewed by me Assessment/Plan Assessment/Plan Update -Patient had decreased p.o. tolerance in the morning. Patient was doing well otherwise. Plan for discharge in mid afternoon. Prior to input of discharge instructions and orders, patient has syncopal episode and or perhaps seizure episode. Patient was continued on seizure medications, during rapid response noted to have blood glucose of 70, given her decreased p.o. tolerance. Discharge canceled. We will maintain on fluids and follow up on fall. #Acute cholecystitis -SP lap andrey on 10/24. Cleared by surgery for discharge on 10/25. #Transaminitis -resolving #Seizure disorder- continue Keppra, 10/25 1000 IV Keppra load #Fall/seizure/syncope episode 10/25: Episode was likely due to hypoglycemia and/or versus seizure. Status post Keppra load 1000 mg IV, continue home dose Keppra. Q hour blood glucose checks, maintain blood glucose r above 90. Fall precaution, bed alarm, q.4h neuro checks. Diet CLD DVT prophylaxis Lovenox subQ GI prophylaxis Protonix IV daily Med surge Full code Plan discussed with: Patient My Orders Orders - DORCAS CARVAJAL MD Procedure Category Date Status Time Head Without Contrast CT 10/25/24 Resulted 14:59 Facial Bones Complete XY 10/25/24 Resulted 15:02 R Rib Xray XY 10/25/24 Resulted 15:10 Hydrocodone-Acet PHA 10/25/24 In Process 10/325mg Tab ([place] 16:45 Date of Service: Oct 25, 2024 Billing Provider: DORCAS CARVAJAL MD Common Visit Codes: [id number] INP/OBS CARE(HIGH) DORCAS CARVAJAL MD Oct 25, 2024 23:47
[2024-10-26] VITALS (10 sets, daily range): BP systolic 122–147; BP diastolic 66–89; PULSE 51–74; RESP 18–20; TEMP 97.7–98.8; O2SAT 96–99
[2024-10-26 06:28] LABS: Basophils # (auto) 0 10 ^3/uL (0-0.2); Basophils % (auto) 0.5 % (0.0-2.0); Eosinophils # (auto) 0.2 10 ^3/uL (0-0.8); Hemoglobin 11.4 g/dL (12.2-16.2); Lymphocytes # (auto) 2.4 10 ^3/uL (0.4-5.4); Lymphocytes % (auto) 42.5 % (10.0-50.0); Mean Corpuscular Hemoglobin 26.5 pg (28.0-32.0); Mean Corpuscular Hgb Conc. 33.4 g/dL (32.0-36.0); Mean Corpuscular Volume 79.3 fL (80.0-100.0); Monocytes # (auto) 0.4 10 ^3/uL (0-1.3); Monocytes % (auto) 7.2 % (0.0-12.0); Neutrophils # (auto) 2.6 10 ^3/uL (1.6-8.6); Neutrophils % (auto) 45.8 % (37.0-80.0); Platelet Count (auto) 169 10^3/uL (140-450); Red Blood Cells 4.29 10^6/uL (4.0-5.20); Red Cell Distribution Width 15.4 % (11.8-14.3); White Blood Cell 5.7 10^3/uL (4.4-10.8)
[2024-10-26 06:31] LABS: Anion Gap 7 (5-15); BUN/Creatinine Ratio 8.8 (10.0-20.0); Calcium 9.5 mg/dL (8.7-10.4); Carbon Dioxide 27 mmol/L (20-31); Glucose 80 mg/dL (74-106); Sodium 143 mmol/L (136-145)
[2024-10-26 06:32] LABS: Bilirubin, Total 0.7 mg/dL (0.2-1.0); Total Protein 6.1 g/dL (5.7-8.2)
[2024-10-26 06:39] LABS: Alanine Aminotransferase 375 U/L (7-40); Alkaline Phosphatase 164 U/L (46-116); Aspartate Aminotransferase 71 U/L (13-40); Blood Urea Nitrogen 6 mg/dL (9-23); Chloride 109 mmol/L (98-107); Potassium 3.4 mmol/L (3.5-5.1)
--- NOTE | 2024-10-26 10:09 | DVH ---
EXAM: XR Right Shoulder Complete, 2 or More Views CLINICAL INDICATION: s/p fall TECHNIQUE: Two or more views of the right shoulder. COMPARISON: None FINDINGS: BONES/JOINTS: Unremarkable. No acute fracture. No dislocation. SOFT TISSUES: Unremarkable. OTHER FINDINGS: . . . IMPRESSION: No acute fracture. HS:Y
[2024-10-26] MEDS: METOCLOPRAMIDE HCL 5MG/ml INJ 2ml VIAL IV ONE (12:43)
--- NOTE | 2024-10-26 13:09 | DVH ---
Exam: XY KUB ABDOMEN SINGLE VIEW Indication: NAUSEA Comparison: None Technique: Radiographic views of the abdomen. Findings: ID seen in the midline of the pelvis. Nonobstructive bowel gas pattern noted. There is no definite evidence for pneumoperitoneum. No abnormal calcifications noted. Impression: 1. Nonobstructive bowel gas pattern noted.
--- NOTE | 2024-10-26 14:09 | DVHPN2 ---
Subjective Update - - 10/25 - Patient had decreased p.o. tolerance in the morning. Patient was doing well otherwise. Plan for discharge in mid afternoon. Prior to input of discharge instructions and orders, patient has syncopal episode and or perhaps seizure episode. Patient was continued on seizure medications, during rapid response noted to have blood glucose of 70, given her decreased p.o. tolerance. Discharge canceled. We will maintain on fluids and follow up on fall. - 10/26 - still having decreased p.o. intake due to nausea. Abdominal pain is tolerable. Has improved bowel sounds this morning. Surgery following. Continue Q4 H blood glucose checks as patient had fallen due to low glucose yesterday. Keep bedside commode. Given 1 time Reglan. We will x-rays for trauma are negative (i.e. right ribs right shoulder head CT), KUB this afternoon is also negative. Patient is passing gas. may need GG- SB series, defer to surgeon. will start maco zofran. Reviewed: Care Plan, H&P Changes from previous H/P or p: No Changes General: Per HPI Objective Vitals Vital Signs Date Time Temp Pulse Resp B/P (MAP) Pulse Ox O2 Delivery O2 Flow Rate FiO2 10/26/24 12:34 98.8 63 20 127/89 (102) 96 98.8 10/26/24 10:30 Room Air 10/26/24 10:30 0 21 Intake/Output Intake and Output 10/26/24 07:00 Intake Total 1380 ml Balance 1380 ml Intake Oral 1280 ml IV Total 100 ml # Voids 5 # Bowel Movements 1 Exam GEN: Healthy appearing, well-developed, NAD. HEENT: NC/AT; MMM. CV: RRR, no m/r/g. LUNGS: Bibasilar rales ABD: Tender to palpation on right upper quadrant and near surgical incisions. Bowel sounds are hypoactive. No rigidity, no peritonitis signs.. EXT: skin Warm, well perfused. no rashes. No clubbing, cyanosis, or edema. NEURO: Ambulating with no limitations. No focal deficits. Medications Current Medications Medications Dose Ordered Sig/Maco Route Start Time Stop Time Status Last Admin Dose Admin Sodium Chloride 1,000 ml @ 70 mls/hr [id number] IV 10/23/24 09:45 10/26/24 09:10 70 MLS/HR Ondansetron HCl 4 mg Q4HP PRN IV 10/23/24 09:45 10/25/24 17:40 4 MG Acetaminophen 650 mg Q6HP PRN PO 10/23/24 09:45 10/23/24 14:29 650 MG Morphine Sulfate 2 mg Q4HPRN PRN IV 10/23/24 09:45 10/24/24 17:31 2 MG Piperacillin Sod/ Tazobactam Sod 100 ml @ 25 mls/hr Q8HR IV 10/23/24 14:00 10/26/24 05:37 25 MLS/HR Levetiracetam 500 mg BID PO 10/23/24 22:00 10/26/24 09:09 500 MG Acetaminophen/ Hydrocodone Bitart 1 tab Q4HP PRN PO 10/25/24 16:45 10/26/24 11:07 1 TAB Laboratory Results Laboratory Tests 10/26/24 05:04 Chemistry Test 10/25/24 16:55 10/26/24 05:04 Albumin 4.0 g/dL (3.2-4.8) 4.0 g/dL (3.2-4.8) Calcium Level 9.5 mg/dL (8.7-10.4) 9.5 mg/dL (8.7-10.4) Total Protein 6.1 g/dL (5.7-8.2) 6.1 g/dL (5.7-8.2) LFT Test 10/25/24 16:55 10/26/24 05:04 Alanine Aminotransferase (ALT) 428 U/L (7-40) H 375 U/L (7-40) H Alkaline Phosphatase 165 U/L (46-116) H 164 U/L (46-116) H Aspartate Amino Transferase (AST) 79 U/L (13-40) H 71 U/L (13-40) H Total Bilirubin 0.8 mg/dL (0.2-1.0) 0.7 mg/dL (0.2-1.0) Urinalysis Test 10/23/24 06:58 Urine Color Dark-yellow (Yellow) Urine Clarity Clear (Clear) Urine pH 7.5 (5.0-9.0) Urine Specific [place] 1.031 (1.001-1.035) Urine Protein 1+ (Negative) H Urine Ketones Negative (Negative) Urine Blood Negative /uL (Negative) Urine Nitrite Negative (Negative) Urine Bilirubin 1+ (Negative) H Urine Urobilinogen Normal mg/dL (Negative) Urine Leukocyte Esterase Negative /uL (Negative) Urine RBC 1 /hpf (0 - 4) Urine WBC 2 /hpf (0 - 5) Urine Squamous Epithelial Cells Few /hpf (<5) Urine Bacteria None seen /hpf (None Seen) Urine Mucus Few (None Seen) Urine Glucose Normal mg/dL (Normal) Urine Test Negative (Negative) Labs and/or images reviewed: Labs reviewed by me, Image(s) reviewed by me Assessment/Plan Assessment/Plan Update - - 10/26 - still having decreased p.o. intake due to nausea. Abdominal pain is tolerable. Has improved bowel sounds this morning. Surgery following. Continue Q4 H blood glucose checks as patient had fallen due to low glucose yesterday. Keep bedside commode. Given 1 time Reglan. We will x-rays for trauma are negative (i.e. right ribs right shoulder head CT), KUB this afternoon is also negative. Patient is passing gas. may need GG- SB series, defer to surgeon. will start maco zofran. #Acute cholecystitis -SP lap andrey on 10/24. Cleared by surgery for discharge on 10/25. # poor po tolerance s/p surgical intervention: on zofran prn. tried 1x reglan, differ furrther to surgeon. kub 10/26 normal. #Transaminitis -resolving #Seizure disorder- continue Keppra, 10/25 1000 IV Keppra load #Fall/seizure/syncope episode 10/25: Episode was likely due to hypoglycemia and/or versus seizure. Status post Keppra load 1000 mg IV, continue home dose Keppra. Q hour blood glucose checks, maintain blood glucose r above 90. Fall precaution, bed alarm, q.4h neuro checks. CT head, Xray R ribs, R shoulder negative for fracture). Diet CLD DVT prophylaxis Lovenox subQ GI prophylaxis Protonix IV daily Med surge Full code Plan discussed with: Patient My Orders Orders - DORCAS CARVAJAL MD Procedure Category Date Status Time Head Without Contrast CT 10/25/24 Resulted 14:59 Facial Bones Complete XY 10/25/24 Resulted 15:02 R Rib Xray XY 10/25/24 Resulted 15:10 Hydrocodone-Acet PHA 10/25/24 In Process 10/325mg Tab ([place] 16:45 R Shoulder 2+ View XY 10/26/24 Resulted Xray 09:13 Kub Abdomen Single XY 10/26/24 Resulted View 12:10 Date of Service: Oct 26, 2024 Billing Provider: DORCAS CARVAJAL MD Common Visit Codes: [id number] INP/OBS CARE(HIGH) DORCAS CARVAJAL MD Oct 26, 2024 14:09
[2024-10-26] MEDS: PROCHLORPERAZINE EDISYLATE 5 MG/ML 2ML VIAL IV PRN (15:46)
--- NOTE | 2024-10-26 18:28 | DVHPN2 ---
Progress Note Date Seen: Oct 26, 2024 Medical Necessity Reason Pt with a Central, PICC or Fol: No Objective vital signs Vital Sign Date Time Temp Pulse Resp B/P (MAP) Pulse Ox O2 Delivery O2 Flow Rate FiO2 10/26/24 16:38 97.7 58 20 140/75 (96) 99 97.7 10/26/24 10:30 Room Air 10/26/24 10:30 0 21 Total Intake and Output 10/25/24 10/25/24 10/26/24 15:00 23:00 07:00 Intake Total 780 ml 600 ml Balance 780 ml 600 ml medications Current Medications Medications Dose Ordered Sig/Maco Route Start Time Stop Time Status Last Admin Dose Admin Sodium Chloride 1,000 ml @ 70 mls/hr [id number] IV 10/23/24 09:45 10/26/24 09:10 70 MLS/HR Acetaminophen 650 mg Q6HP PRN PO 10/23/24 09:45 10/23/24 14:29 650 MG Morphine Sulfate 2 mg Q4HPRN PRN IV 10/23/24 09:45 10/24/24 17:31 2 MG Piperacillin Sod/ Tazobactam Sod 100 ml @ 25 mls/hr Q8HR IV 10/23/24 14:00 10/26/24 15:27 25 MLS/HR Levetiracetam 500 mg BID PO 10/23/24 22:00 10/26/24 09:09 500 MG Acetaminophen/ Hydrocodone Bitart 1 tab Q4HP PRN PO 10/25/24 16:45 10/26/24 11:07 1 TAB Ondansetron HCl 4 mg Q8HP PO 10/26/24 22:00 Prochlorperazine Edisylate 5 mg Q4HPRN PRN IV 10/26/24 14:15 10/26/24 15:46 5 MG laboratory and microbiology Laboratory Tests 10/26/24 05:04 Test 10/26/24 05:04 Range/Units Serum Glucose 80 74-106 mg/dL Problem List/Assessment/Plan Problem List/Assessment/Plan AFEBRILE VSS ABD SOFT WOUNDS HEALED JOSEPH CLEAR LIQUIDS LFT TRENDING DOWN NO COMPLICATIONS S/P LAP CHOLECYSTECTOMY ADVANCE DIET JOSEPH CLEARED FOR DISCHARGE INSTRUCTIONS RE DIET ACTIVITY F/UP GIVEN Plan discussed with: Patient Dietary Evaluation Review Comments: 1) Advance pt diet when medicalluy feasible 2) Continue current plan of care Expected Outcomes/Goals: F/U in 2-3 days AARON SEGUNDO MD Oct 26, 2024 18:28
[2024-10-26] MEDS: ONDANSETRON ODT 4 MG TAB PO SCH (21:30)
[2024-10-27] VITALS (8 sets, daily range): BP systolic 122–157; BP diastolic 68–80; PULSE 55–84; RESP 14–20; TEMP 36.7; O2SAT 95–98
[2024-10-27] MEDS: ALBUTEROL SULF 2.5 MG/0.5ML(0.5%) NEB SOLN NEB ONE (14:38)
[2024-10-27 14:50] LABS: Basophils # (auto) 0 10 ^3/uL (0-0.2); Basophils % (auto) 0.4 % (0.0-2.0); Eosinophils # (auto) 0.2 10 ^3/uL (0-0.8); Eosinophils % (auto) 3.7 % (0.0-7.0); Hematocrit 37.8 % (36.0-46.0); Hemoglobin 12.5 g/dL (12.2-16.2); Lymphocytes # (auto) 2.1 10 ^3/uL (0.4-5.4); Lymphocytes % (auto) 33.3 % (10.0-50.0); Mean Corpuscular Hemoglobin 26.2 pg (28.0-32.0); Mean Corpuscular Hgb Conc. 33.1 g/dL (32.0-36.0); Mean Corpuscular Volume 79.2 fL (80.0-100.0); Monocytes # (auto) 0.3 10 ^3/uL (0-1.3); Monocytes % (auto) 5.4 % (0.0-12.0); Neutrophils # (auto) 3.6 10 ^3/uL (1.6-8.6); Neutrophils % (auto) 57.2 % (37.0-80.0); Nucleated Red Blood Cells % 0.1 %; Platelet Count (auto) 177 10^3/uL (140-450); Red Blood Cells 4.78 10^6/uL (4.0-5.20); Red Cell Distribution Width 15.4 % (11.8-14.3); White Blood Cell 6.3 10^3/uL (4.4-10.8)
[2024-10-27 15:07] LABS: Albumin 4.4 g/dL (3.2-4.8); Anion Gap 8 (5-15); Calcium 9.9 mg/dL (8.7-10.4); Carbon Dioxide 25 mmol/L (20-31); Glucose 83 mg/dL (74-106); Sodium 140 mmol/L (136-145)
[2024-10-27 15:08] LABS: Bilirubin, Total 0.8 mg/dL (0.2-1.0); Total Protein 6.6 g/dL (5.7-8.2)
[2024-10-27 15:10] LABS: Alkaline Phosphatase 193 U/L (46-116); Aspartate Aminotransferase 91 U/L (13-40); Chloride 107 mmol/L (98-107)
--- NOTE | 2024-10-27 15:23 | DVHDS2 ---
Discharge Summary Date of Admission Oct 23, 2024 at 09:45 Date of Discharge: Oct 27, 2024 Labs/Diagnostic Data: Laboratory Results Test 10/27/24 14:28 10/25/24 15:03 10/23/24 06:58 10/23/24 02:52 White Blood Count 6.3 10^3/uL (4.4-10.8) Red Blood Count 4.78 10^6/uL (4.0-5.20) Hemoglobin 12.5 g/dL (12.2-16.2) Hematocrit 37.8 % (36.0-46.0) Mean Corpuscular Volume 79.2 fL (80.0-100.0) Mean Corpuscular Hemoglobin 26.2 pg (28.0-32.0) Mean Corpuscular Hemoglobin Concent 33.1 g/dL (32.0-36.0) Red Cell Distribution Width 15.4 % (11.8-14.3) Platelet Count 177 10^3/uL (140-450) Mean Platelet Volume 9.7 fL (6.9-10.8) Neutrophils (%) (Auto) 57.2 % (37.0-80.0) Lymphocytes (%) (Auto) 33.3 % (10.0-50.0) Monocytes (%) (Auto) 5.4 % (0.0-12.0) Eosinophils (%) (Auto) 3.7 % (0.0-7.0) Basophils (%) (Auto) 0.4 % (0.0-2.0) Neutrophils # (Auto) 3.6 10 ^3/uL (1.6-8.6) Lymphocytes # (Auto) 2.1 10 ^3/uL (0.4-5.4) Monocytes # (Auto) 0.3 10 ^3/uL (0-1.3) Eosinophils # (Auto) 0.2 10 ^3/uL (0-0.8) Basophils # (Auto) 0 10 ^3/uL (0-0.2) Nucleated Red Blood Cells 0.1 % Sodium Level 140 mmol/L (136-145) Chloride Level 107 mmol/L (98-107) Carbon Dioxide Level 25 mmol/L (20-31) Anion Gap 8 (5-15) Creatinine 0.80 mg/dL (0.550-1.02) Glomerular Filtration Rate Calc 104 mL/min (>90) Serum Glucose 83 mg/dL (74-106) Calcium Level 9.9 mg/dL (8.7-10.4) Total Bilirubin 0.8 mg/dL (0.2-1.0) Aspartate Amino Transferase (AST) 91 U/L (13-40) Alkaline Phosphatase 193 U/L (46-116) Total Protein 6.6 g/dL (5.7-8.2) Albumin 4.4 g/dL (3.2-4.8) POC Glucose 73 mg/dl (70-106) Urine Color Dark-yellow (Yellow) Urine Clarity Clear (Clear) Urine pH 7.5 (5.0-9.0) Urine Specific [place] 1.031 (1.001-1.035) Urine Protein 1+ (Negative) Urine Ketones Negative (Negative) Urine Blood Negative /uL (Negative) Urine Nitrite Negative (Negative) Urine Bilirubin 1+ (Negative) Urine Urobilinogen Normal mg/dL (Negative) Urine Leukocyte Esterase Negative /uL (Negative) Urine RBC 1 /hpf (0 - 4) Urine WBC 2 /hpf (0 - 5) Urine Squamous Epithelial Cells Few /hpf (<5) Urine Bacteria None seen /hpf (None Seen) Urine Mucus Few (None Seen) Urine Glucose Normal mg/dL (Normal) Urine Test Negative (Negative) Urine Opiates Screen Neg (NEGATIVE) Urine Fentanyl Screen Neg (NEGATIVE) Urine Barbiturates Screen Neg (NEGATIVE) Urine Phencyclidine Screen Neg (NEGATIVE) Urine Amphetamines Screen Neg (NEGATIVE) Urine Benzodiazepines Screen Neg (NEGATIVE) Urine Cocaine Screen Neg (NEGATIVE) Urine Cannabinoids Screen Pos (NEGATIVE) Lipase 54 U/L (12-53) Other Laboratory Tests 10/27/24 14:28 Brief Hx & Hospital Course: 24-year-old female with past medical history of depression, asthma, anxiety, seizures, cholelithiasis, GERD, polysubstance abuse, bipolar disorder, PTSD, and who presents to the ED for abdominal pain, nausea, vomiting x1 week. Patient reports that when she eats it gets worse also her pain is dull constant and 4/10. On admit CT abdomen and pelvis unremarkable, follow up right upper quadrant ultrasound showing cholelithiasis with possible sign of acute or chronic cholecystitis. HIDA scan with nonvisualized gallbladder concerning for acute cholecystitis. MRCP also with cholelithiasis and thickening gallbladder raising concern for acute cholecystitis. Head CT without any acute intracranial process. On 10/25 patient had a fall due to likely hypoglycemia versus seizure. She had been continued on her home p.o. Keppra. Outpatient endorsed that when her body is stressed out she does get seizures. I she was resuscitated with D50 and IV fluids LR, IV load of Keppra 1 gal either leg. Follow up with x-ray face right ribs right shoulder but were negative for fractures. Postop is slow recovery, patient has trouble tolerating p.o., on 10/27 after using scheduled p.o. Zofran lesions starts to improve and is tolerating p.o. better. Plan made for discharge, cleared by surgery. Discharge plan as below. Diagnosis: acute cholecystitis, intractable abdominal pain, resolving; poor oral tolerance status post surgical intervention, resolving; transaminitis resolving; history of seizure disorder; fall during hospitalization, no acute fractures, resolved; hypoglycemia due to poor p.o. tolerance, resolved; Discharge plan: - please finish augmentin 857mg 2x/day for x 5 days - for pain, used tylenol, then ibuprofen, then as needed norco 10 (every 8 hr as needed) - zofran sublingual tablet, 3 times daily as needed for nausea -Full liquid diet for next 1 week then advance - avoid heavy lifting x 2 weeks. --follow up with PCP for discharge review -follow up with surgery, keep abdominal binder on until follow up appointment -continue other home medications not mentioned above. Return to ED if pain returns and/ or worsening sign Visitation and planning required 35 minutes Condition at Discharge: Fair Final Diagnosis/Problems List acute cholecystitis, intractable abdominal pain, resolving; poor oral tolerance status post surgical intervention, resolving; transaminitis resolving; history of seizure disorder; fall during hospitalization, no acute fractures, resolved; hypoglycemia due to poor p.o. tolerance, resolved; Discharge Disposition: Home Discharge Instruct/Medications Diet: See Comment Diet comment: Full liquid diet Activity: See Comment Activity comment: no heavy lifting 2 weeks Follow Up/Referral: pcp, surgery Medications: as below Discharge Statement: "Patient was advised to return to the ER or call 911 if any headaches, dizziness, shortness of breath, chest pain, abdominal pain, bleeding, fevers, or worsening of medical condition. Patient was counseled about treatment plan, medications, possible side effects, patientverbalized understanding. All questions were answered to the best of my ability. This discharge took greater then 30 minutes in planning, reviewing documentation, counseling the patient, and discussing with other team members." ASSESSMENT ASSESSMENT Assessment acute cholecystitis, intractable abdominal pain, resolving; poor oral tolerance status post surgical intervention, resolving; transaminitis resolving; history of seizure disorder; fall during hospitalization, no acute fractures, resolved; hypoglycemia due to poor p.o. tolerance, resolved; Date of Service: Oct 27, 2024 Billing Provider: DORCAS CARVAJAL MD Common Visit Codes: 26425-JFS/OBS DISCH DAY >30min DORCAS CARVAJAL MD Oct 27, 2024 15:23
[2024-10-27 16:22] LABS: Alanine Aminotransferase 325 U/L (7-40); Blood Urea Nitrogen 8 mg/dL (9-23); Potassium 4.8 mmol/L (3.5-5.1)
[2024-10-27] MEDS ORDERED: ROCURONIUM 10MG/ML 10ML VIAL IV ONE (16:43)
== END 2024-10-27 16:44 | disposition home or self-care (01) | DRG 263 ==
LOC: ER 00:19 → EDBD 00:19 → OVERFLOW 09:45 → WEST WING 15:13 → TELE-WESTW 10-24 16:42
PROVIDERS: ADMIT Student in an Organized Health Care Education/Training Program; ATTEND Student in an Organized Health Care Education/Training Program
PROC: 0FT44ZZ Resection of Gallbladder, Percutaneous Endoscopic Approach (ICD-10-PCS; principal; 2024-10-24 11:04)
DX: K80.12 Calculus of gallbladder with acute and chronic cholecystitis without obstruction (principal); E16.2 Hypoglycemia, unspecified; F31.9 Bipolar disorder, unspecified; F41.9 Anxiety disorder, unspecified; J45.909 Unspecified asthma, uncomplicated; R74.01 Elevation of levels of liver transaminase levels; K21.9 Gastro-esophageal reflux disease without esophagitis; G40.909 Epilepsy, unspecified, not intractable, without status epilepticus; Z87.891 Personal history of nicotine dependence; Z97.5 Presence of (intrauterine) contraceptive device; Z98.891 History of uterine scar from previous surgery; W18.30XA Fall on same level, unspecified, initial encounter; Y93.89 Activity, other specified; Y92.238 Other place in hospital as the place of occurrence of the external cause; Y99.8 Other external cause status
CPT/HCPCS: 36415; 70450; 71101; 73030; 74018; 74176; 74181; 76705; 78226; 80053; 80307; 81001; 81025; 82962; 83690; 85025; 94640; G0378; J1885; J2250; J2405; J2543; J3490; Q0162

== ENCOUNTER 2025-04-17 04:04 | Emergency (ER) | payer MEDICAID ==
[~2025-04-17] VITALS: Ht 162.6 cm; Wt 68.2 kg
[~2025-04-17 04:04] MED LIST changes: +AUG875T PO; +HYDR-4902 PO; +MEDR10TA9 PO; -NITR-52 PO; -PANT40TA2 PO; -PANT40TA57 PO; -QUET50TA PO; -SIME80CH49 PO; -TRAM-626 PO; -ZIPR80CA43 PO
--- NOTE | 2025-04-17 05:35 | ED.PDOC ---
GI ASSESSMENT HPI Comments 24 year old female presents to the ED via EMS with a chief complaint of abdominal pain onset today (04/17/25) around 01:00. Patient states she began experiencing mild epigastric pain 2 days ago, woke up today around 01:00 with worsen pain as well as nausea, vomiting. PMHx GERD, anxiety, asthma, depression, seizures. Denies chest pain, shortness of breath, diarrhea, headache, hematemesis. No other symptoms or modifying factors present at this time. Chief Complaint: Abdominal Pain Time Seen by MD: 05:25 Primary Care Provider: RENETTA Reviewed Notes: Medications, Allergies Allergies: Coded Allergies: Avocado (Verified Allergy, Unknown, 04/19/24) Coconut (Cocos Nucifera) (Verified Allergy, Unknown, 04/19/24) Phenytoin (Verified Allergy, Unknown, 04/19/24) Valproic Acid (Verified Allergy, Unknown, 12/22/23) Home Meds Active Scripts Ondansetron Odt 4MG Tab (ZOFRAN PO) 4 Mg Tb, 4 MG PO Q8HPRN PRN for 3 Days, #9 TAB ODT TAB-DISSOLVE IN MOUTH, THEN SWALLOW Prov:DIPESH DELUCA DO 04/17/25 Nitrofurantoin Monohydrate Mac (Macrobid) 100 Mg Cap, 100 MG PO BID for 7 Days, #14 CAP Prov:DIPESH DELUCA DO 04/17/25 Ondansetron Odt 4MG Tab (ZOFRAN PO) 4 Mg Tb, 4 MG PO TIDPRN PRN for 7 Days, #21 TAB ODT TAB-DISSOLVE IN MOUTH, THEN SWALLOW Prov:DORCAS CARVAJAL MD 10/25/24 Hydrocodone-Acetaminophen (Hydrocodone Bitartrate/AC 5-325 mg) 1 Tab Tab, 1 TAB PO TIDPRN PRN for 6 Days, #18 TAB 0 Refills Prov:DORCAS CARVAJAL MD 10/25/24 Amoxicillin & Pot Clavulanate (AUGMENTIN TABLET) 875 Mg Tb, 875 MG PO BID for 5 Days, #10 TAB 0 Refills Prov:DORCAS CARVAJAL MD 10/25/24 Ondansetron Odt 4MG Tab (ZOFRAN PO) 4 Mg Tb, 4 MG PO TIDPRN PRN for 7 Days, #21 TAB 0 Refills as needed for nausea; ODT TAB-DISSOLVE IN MOUTH, THEN SWALLOW Prov:DORCAS CARVAJAL MD 08/12/24 Lactulose (Lactulose) 10 Gm/15 Ml Cristiana, 10 GM PO BIDP PRN, #150 ML Prov:JAY TURNER PAC 12/23/23 Albuterol Sulfate (Albuterol Sulfate Hfa) 108 Mcg/Act Aer, 108 MCG IN TID, #90 AER Prov:MICHELLE CASTELLANOS 01/06/23 Reported Medications Medroxyprogesterone Acetate (Medroxyprogesterone Aceta) 10 Mg Tab, 1 TAB PO DAILY 10/23/24 Information Source: Patient, Emergency Med Personnel Mode of Arrival: EMS Timing: Hours Duration: Since onset Prehospital treatment: None Quality: Sharp Severity: Moderate Recent: None Recent Hx of: None Pain Location: Epigastric Associated sign and symptoms: Nausea, Vomiting, Abdominal Pain Past Medical History PAST MEDICAL HISTORY: Anxiety, Asthma, Depression, Gallstones, GERD, Seizures Surgical History: Cholecystectomy, 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 History Family History Family History: Reviewed,noncontributory to illness, Family hx of Cancer Social History Smoker: Quit Greater Than 1 Year Alcohol: Occasionally Drugs: Marijuana Lives In: Home Constitutional: denies: chills, diaphoresis, fatigue, fever, malaise, sweats, weakness, others EENTM: denies: blurred vision, double vision, ear bleeding, ear discharge, ear drainage, ear pain, ear ringing, eye pain, eye redness, hearing loss, mouth pain, mouth swelling, nasal discharge, nose bleeding, nose congestion, nose pain , photophobia, tearing, throat pain, throat swelling, voice changes, others Respiratory: denies: cough, hemoptysis, orthopnea, SOB at rest, shortness of breath, SOB with excertion, stridor, wheezing, others Cardiovascular: denies: chest pain, dizzy spells, diaphoresis, Dyspnea on exertion, edema, irregular heart beat, left arm pain, lightheadedness, palpitations, PND, syncope, others Gastrointestinal: reports: abdominal pain, nausea, vomiting; denies: abdomen distended, blood streaked bowels, constipated, diarrhea, dysphagia, difficulty swallowing, hematemesis, melena, poor appetite, poor fluid intake, rectal bleeding, rectal pain, others Genitourinary: denies: abnormal vagina bleeding, burning, dyspareunia, dysuria, flank pain, frequency, hematuria, incontinence, pain, , vagina discharge, urgency, others Neurological: denies: dizziness, fainting, headache, left sided numbness, left sided weakness, numbness, paresthesia, pre-existing deficit, right sided nu mbness, right sided weakness, seizure, speech problems, tingling, tremors, weakness, others Musculoskeletal: denies: back pain, gout, joint pain, joint swelling, muscle pain, muscle stiffness, neck pain, others Integumetry: denies: bruises, change in color, change in hair/nails, dryness, laceration, lesions, lumps, rash, wounds, others Allergic/Immunocompromised: denies: Difficulty Healing, Frequent Infections, Hives, Itching, others Hematologic/Lymphatic: denies: anemia, blood clots, easy bleeding, easy bruising, swollen glands, others Endocrine: denies: excessive hunger, excessive sweating, excessive thirst, excessive urination, flushing, intolerance to cold, intolerance to heat, unexplained weight gain, unexplained weight loss, others Psychiatric: denies: anxiety, bipolar disorder, depression, hopeless, panic disorder, schizophrenia, sleepless, suicidal, others All Other Systems: Reviewed and Negative Physical Exam General Appearance: Normal HEENT: Normal ENT Inspection, Pharynx Normal, TMs Normal Neck: Full Range of Motion, Non-Tender, Normal, Normal Inspection Respiratory: Chest Non-Tender, Lungs Clear, No Accessory Muscle Use, No Respiratory Distress, Normal Breath Sounds Cardiovascular: No Edema, No JVD, No Murmur, No Gallop, Normal Peripheral Pulses, Regular Rate/Rhythm Breast Exam: Deferred Gastrointestinal: No Organomegaly, Non Tender, No Pulsatile Mass, Normal Bowel Sounds, Soft Genitalia: Deferred Pelvic: Deferred Rectal: Deferred Extremities: No calf tenderness, Normal capillary refill, Normal inspection, Normal range of motion, Non-tender, No pedal edema Musculoskeletal : Apperance: Normal Neurologic: Alert, chip frier II-XII nml as Tested, No Motor Deficits, Normal Affect, Normal Mood, No Sensory Deficits Cerebellar Function: Normal Reflexes: Normal Skin: Dry, Normal Color, Warm Lymphatic: No Adenopathy Was a procedure done? Was a procedure done?: No GI differential Dx Differential Diagnosis: Other (DDX include Diverticulitis, colitis, gastroenteritis, acute abdomen, SBO, enteritis, constipation, volvulus, appendicitis, Gallbladder disease, choledocolithiasis, ascending cholangitis, pancreatitis, intraAbdominal mass/neoplasm, hepatitis, UTI, pylonephritis, kidney stone, aneurysm, dissection, Inflammatory bowel disease, gastroparesis, ischemic bowel, ovarian torsion, ovarian cyst/mass, tubo-ovarian abscess, , ectopic , PID, STD.) X-Ray, Labs, Meds, VS Vital Signs Date Time Temp Pulse Resp B/P (MAP) Pulse Ox O2 Delivery O2 Flow Rate FiO2 04/17/25 08:58 98.1 93 16 111/61 (78) 95 98.1 04/17/25 07:29 98.5 90 18 111/66 (81) 95 98.5 04/17/25 06:03 Room Air* 0 21 04/17/25 05:05 97.8 107 20 129/68 (88) 96 97.8 04/17/25 05:05 107 20 96 Room Air 04/17/25 04:05 98.6 91 17 119/74 (89) 98 98.6 Lab Test 04/17/25 05:47 04/17/25 05:34 04/17/25 04:57 Range/Units Urine Color Dark-yellow Yellow Urine Clarity Ex.turbid Clear Urine pH 5.5 5.0-9.0 Urine Specific [place] 1.037 H 1.001-1.035 Urine Protein 2+ H Negative Urine Ketones 1+ H Negative Urine Blood Trace H Negative /uL Urine Nitrite Negative Negative Urine Bilirubin 1+ H Negative Urine Urobilinogen 3 H Negative mg/dL Urine Leukocyte Esterase Negative Negative /uL Urine RBC 19 0 - 4 /hpf Urine Microscopic WBC 6 H 0-5 /HPF Urine Squamous Epithelial Cells Mod <5 /hpf Urine Bacteria Few H None Seen /hpf Urine Hyaline Casts Many 0 - 2 /lpf Urine Mucus Many None Seen Urine Glucose Trace Normal mg/dL Urine Test Negative Negative White Blood Count 12.4 H 4.4-10.8 10^3/uL Red Blood Count 6.26 H 4.0-5.20 10^6/uL Hemoglobin 17.0 H 12.2-16.2 g/dL Hematocrit 49.3 H 36.0-46.0 % Mean Corpuscular Volume 78.8 L 80.0-100.0 fL Mean Corpuscular Hemoglobin 27.1 L 28.0-32.0 pg Mean Corpuscular Hemoglobin Concent 34.4 32.0-36.0 g/dL Red Cell Distribution Width 15.3 H 11.8-14.3 % Platelet Count 306 140-450 10^3/uL Mean Platelet Volume 9.5 6.9-10.8 fL Neutrophils (%) (Auto) 76.4 37.0-80.0 % Lymphocytes (%) (Auto) 17.8 10.0-50.0 % Monocytes (%) (Auto) 4.9 0.0-12.0 % Eosinophils (%) (Auto) 0.6 0.0-7.0 % Basophils (%) (Auto) 0.3 0.0-2.0 % Neutrophils # (Auto) 9.5 H 1.6-8.6 10 ^3/uL Lymphocytes # (Auto) 2.2 0.4-5.4 10 ^3/uL Monocytes # (Auto) 0.6 0-1.3 10 ^3/uL Eosinophils # (Auto) 0.1 0-0.8 10 ^3/uL Basophils # (Auto) 0 0-0.2 10 ^3/uL Nucleated Red Blood Cells 0.1 % Sodium Level 139 136-145 mmol/L Potassium Level 3.0 L 3.5-5.1 mmol/L Chloride Level 104 98-107 mmol/L Carbon Dioxide Level 21 20-31 mmol/L Anion Gap 14 5-15 Blood Urea Nitrogen 12 9-23 mg/dL Creatinine 1.09 H 0.550-1.02 mg/dL Glomerular Filtration Rate Calc 72 >90 mL/min BUN/Creatinine Ratio 11.0 10.0-20.0 Serum Glucose 107 H 74-106 mg/dL Calcium Level 9.9 8.7-10.4 mg/dL Lipase 38 12-53 U/L POC Glucose 127 H 70-106 mg/dl Time of 1ST Reevaluation: 05:55 Reevaluation 1ST: Unchanged Time of 2ND Reevaluation: 08:46 (The care of this patient was signed out to me by Dr. Gray pending labs and disposition. I added lipase and test. I ordered fluids. Patient was found with UTI. Antibiotics initiated. Patient's potassium was replaced. I examined the patient. She said she presented for epigastric pain with nausea and vomiting. Denies any other acute symptoms. He has been going on for the last two days after she had some cream ice cream which she later discovered has coconut in it and she is allergic to coconut causes her GI symptoms. Patient is status post cholecystectomy in October of this year.) Patient Education/Counseling: Diagnosis, Treatment Family Education/Counseling: No Family Present Comments Patient presented with the above HPI.--abdominal pain----workup was initiated. patient was found with the above mentioned diagnosis. the following medications were ordered: please refer to order lists of meds and tests obtained by myself Dr. Deluca. Patient ED course and VS have been stabilized. Patient has been reassessed in the ED and remained in a stable condition. Pertinent incidental findings were discussed with the patient and/or family. Patient/family voices understanding and is agreeable with plan. Patient has been observed in the ED adequate length of time to insure improvement/stability. Escalation of care considered: Consideration of escalation to observation or admission Patient was DISCHARGED home in a stable condition. All the reports of any imaging studies that were ordered by myself were reviewed by myself. SEPSIS Sepsis Screen Date sepsis recognized/suspect: Apr 17, 2025 Time Sepsis recognized/suspect: 050 Recent Procedure: No On Antibiotic Therapy: No Respiratory Rate >20: No Heart Rate >90: Yes Temp<36 C (96.8 F) or >38.3 C: No SBP <90 or MAP <65 mmHG: No New Acute Mental Status Change: No Is the patient on CPAP, BIPAP,: No Vital Signs Date Time Temp Pulse Resp B/P (MAP) Pulse Ox O2 Delivery O2 Flow Rate FiO2 04/17/25 08:58 98.1 93 16 111/61 (78) 95 98.1 04/17/25 07:29 98.5 90 18 111/66 (81) 95 98.5 04/17/25 06:03 Room Air* 0 21 04/17/25 05:05 97.8 107 20 129/68 (88) 96 97.8 04/17/25 05:05 107 20 96 Room Air 04/17/25 04:05 98.6 91 17 119/74 (89) 98 98.6 Laboratory Tests Test 04/17/25 05:34 White Blood Count 12.4 10^3/uL (4.4-10.8) H Departure 1 Departure Time of Disposition: 06:57 Impression: Primary Impression: Epigastric pain Additional Impressions: Nausea & vomiting Hypokalemia UTI (urinary tract infection) Disposition: 01 HOME / SELF CARE / HOMELESS Condition: Stable Additional Instructions: Additional instructions: You MUST follow-up with your primary care/family doctor in 1 to 2 days. If you are unable to see your primary care/family doctor, please return to our emergency room for re-assessment and re-evaluation in 1 to 2 days. Return to the emergency room here in our facility or to the nearest ER [facility] if your symptoms change or worsen. CONSULTATIONS: you MUST Follow-up for consultation as soon as possible with: -gastroenterology and general surgery in 1-2 days. Please call for appointment. You MUST call the consultants office yourself to make an appointment. You may need to arrange that through your insurance and/or your primary/family doctor. If you are unable to see the internal control consultant in 1 to 2 days, you must return to our emergency room (or any other ER of your choice) for re-assessment and re- evaluation. Adequate fluid hydration. Avoid fatty greasy spicy food. Avoid caffeinated products. Avoid NSAIDs. e-Prescriptions Ondansetron Odt 4MG Tab (ZOFRAN PO) 4 Mg Tb 4 MG PO Q8HPRN PRN for 3 Days, #9 TAB ODT TAB-DISSOLVE IN MOUTH, THEN SWALLOW Prov: DIPESH DELUCA DO 04/17/25 Nitrofurantoin Monohydrate Mac (Macrobid) 100 Mg Cap 100 MG PO BID for 7 Days, #14 CAP Prov: DIPESH DELUCA DO 04/17/25 Discharged With: Self Critical Care Note Critical Care Time?: No Stability Stability form required: No Heart Score Heart Score: Heart Score Response (Comments) Value History N/A 0 EKG N/A 0 Age N/A 0 Risk Factors N/A 0 Troponin N/A 0 Total 0 I personally scribed for RANJITH GRAY MD ([email or web address]) on 04/17/25 at 05:35. Electronically submitted by Agata Barber ([email or web address]). RANJITH GRAY MD Apr 17, 2025 05:35 DIPESH DELUCA DO Apr 17, 2025 06:57
[2025-04-17 05:59] LABS: Hematocrit 49.3 % (36.0-46.0); Hemoglobin 17.0 g/dL (12.2-16.2); Mean Corpuscular Hemoglobin 27.1 pg (28.0-32.0); Mean Corpuscular Volume 78.8 fL (80.0-100.0); Nucleated Red Blood Cells % 0.1 %
[2025-04-17 06:11] LABS: Chloride 104 mmol/L (98-107); Sodium 139 mmol/L (136-145)
[2025-04-17 06:12] LABS: Anion Gap 14 (5-15); Calcium 9.9 mg/dL (8.7-10.4); Carbon Dioxide 21 mmol/L (20-31)
[2025-04-17 06:16] LABS: Potassium 3.0 mmol/L (3.5-5.1)
[2025-04-17 06:17] LABS: BUN/Creatinine Ratio 11.0 (10.0-20.0); Blood Urea Nitrogen 12 mg/dL (9-23)
[2025-04-17 06:18] LABS: Glucose 107 mg/dL (74-106)
[2025-04-17] MEDS: ONDANSETRON HCL 4 MG/2 ML VIAL IV ONE (06:45)
[2025-04-17] MEDS: POTASSIUM CHL 20 Meq TABLET PO ONE (06:45)
[2025-04-17] MEDS: ONDANSETRON ODT 4 MG TAB PO ONE (06:45)
[2025-04-17] MEDS: SODIUM CHLORIDE 0.9% 1,000 ML IV ONE (07:07)
[2025-04-17 07:28] LABS: Urine Protein, UAD 2+ (Negative)
[2025-04-17] MEDS: cefTRIAXone 1GM/50ML D5W 50 ML IV ONE (07:54)
[2025-04-17] MEDS ORDERED: NITR-87 PO (08:49)
[2025-04-17] MEDS ORDERED: ZOFR4T PO (08:49)
[2025-04-17 08:58] VITALS: BP 111/61; PULSE 93; RESP 16; TEMP 98.1; O2SAT 95
== END 2025-04-17 09:01 | disposition home or self-care (01) ==
LOC: EDBD 04:04 → ER 04:04
DX: E87.6 Hypokalemia (principal); R10.13 Epigastric pain; N39.0 Urinary tract infection, site not specified; R11.2 Nausea with vomiting, unspecified; F10.90 Alcohol use, unspecified, uncomplicated; F12.90 Cannabis use, unspecified, uncomplicated; J45.909 Unspecified asthma, uncomplicated; F41.9 Anxiety disorder, unspecified; F32.A Depression, unspecified; K21.9 Gastro-esophageal reflux disease without esophagitis; Z90.49 Acquired absence of other specified parts of digestive tract; Z87.891 Personal history of nicotine dependence; Z98.890 Other specified postprocedural states; Z79.3 Long term (current) use of hormonal contraceptives; Z79.899 Other long term (current) drug therapy; Z91.018 Allergy to other foods; Z88.8 Allergy status to other drugs, medicaments and biological substances; Y90.9 Presence of alcohol in blood, level not specified
CPT/HCPCS: 36415; 80048; 81001; 81025; 82947; 83690; 85025; 96361; 96365; 96375; 99284; J0696; J2405; J7030; Q0162; 82962

== ENCOUNTER 2025-09-08 06:18 | Emergency (ER) | payer MEDICAID ==
[~2025-09-08] VITALS: Ht 162.6 cm; Wt 63.5 kg
[~2025-09-08 06:18] MED LIST changes: +NITR-87 PO
--- NOTE | 2025-09-08 06:58 | ED.PDOC ---
GI ASSESSMENT HPI Comments 25 year old female with PMHx anxiety, asthma, depression, gallstones, GERD, seizures, presents to the ED via EMS with a chief complaint of nausea/vomiting onset last night around 22:00. Patient states she woke up last night around 22:00 experiencing nausea/vomiting, lower abdominal pain radiates to epigastric region when vomiting. She was also experiencing fever, chills, sweats, upon ED arrival temperature was 98.0F. Denies hematemesis, dizziness, headache, dysuria, hematuria, rectal bleeding, melena. No other symptoms or modifying factors present at this time. Chief Complaint: Abdominal Pain Time Seen by MD: 06:45 Primary Care Provider: RENETTA Reviewed Notes: Nurses Notes, Medications, Allergies Allergies: Coded Allergies: Avocado (Verified Allergy, Unknown, 04/19/24) Coconut (Cocos Nucifera) (Verified Allergy, Unknown, 04/19/24) Phenytoin (Verified Allergy, Unknown, 04/19/24) Valproic Acid (Verified Allergy, Unknown, 12/22/23) Home Meds Active Scripts Ondansetron Odt 4MG Tab (ZOFRAN PO) 4 Mg Tb, 4 MG PO TIDPRN PRN for 7 Days, #21 TAB 0 Refills as needed for nausea; ODT TAB-DISSOLVE IN MOUTH, THEN SWALLOW Prov:YOEL ARCE MD 09/08/25 Pantoprazole Sodium Sesquihydr (Protonix) 40 Mg Tab, 40 MG PO DAILY, #30 TAB Prov:YOEL ARCE MD 09/08/25 Ondansetron Odt 4MG Tab (ZOFRAN PO) 4 Mg Tb, 4 MG PO Q8HPRN PRN for 3 Days, #9 TAB ODT TAB-DISSOLVE IN MOUTH, THEN SWALLOW Prov:DIPESH DELUCA DO 04/17/25 Nitrofurantoin Monohydrate Mac (Macrobid) 100 Mg Cap, 100 MG PO BID for 7 Days, #14 CAP Prov:DIPESH DELUCA DO 04/17/25 Ondansetron Odt 4MG Tab (ZOFRAN PO) 4 Mg Tb, 4 MG PO TIDPRN PRN for 7 Days, #21 TAB ODT TAB-DISSOLVE IN MOUTH, THEN SWALLOW Prov:DORCAS CARVAJAL MD 10/25/24 Hydrocodone-Acetaminophen (Hydrocodone Bitartrate/AC 5-325 mg) 1 Tab Tab, 1 TAB PO TIDPRN PRN for 6 Days, #18 TAB 0 Refills Prov:DORCAS CARVAJAL MD 10/25/24 Amoxicillin & Pot Clavulanate (AUGMENTIN TABLET) 875 Mg Tb, 875 MG PO BID for 5 Days, #10 TAB 0 Refills Prov:DORCAS CARVAJAL MD 10/25/24 Lactulose (Lactulose) 10 Gm/15 Ml Cristiana, 10 GM PO BIDP PRN, #150 ML Prov:JAY TURNER PAC 12/23/23 Albuterol Sulfate (Albuterol Sulfate Hfa) 108 Mcg/Act Aer, 108 MCG IN TID, #90 AER Prov:MICHELLE CASTELLANOS PA 01/06/23 Reported Medications Medroxyprogesterone Acetate (Medroxyprogesterone Aceta) 10 Mg Tab, 1 TAB PO DAILY 10/23/24 Information Source: Patient, Emergency Med Personnel Mode of Arrival: EMS Timing: Hours Duration: Since onset Prehospital treatment: None Quality: Sharp Severity: Moderate Recent: None Recent Hx of: None Pain Location: Diffuse Modifying Factors: Nothing Associated sign and symptoms: Nausea, Vomiting, Abdominal Pain, Fever Past Medical History PAST MEDICAL HISTORY: Anxiety, Asthma, Depression, Gallstones, GERD, Seizures Surgical History: Cholecystectomy, FACILITY TECHNICIAN History: No Pertinent FACILITY TECHNICIAN History Family History Family History: Reviewed,noncontributory to illness, Family hx of Cancer Social History Smoker: Quit Greater Than 1 Year Alcohol: Occasionally Drugs: Marijuana Lives In: Home Constitutional: reports: chills, fever, sweats; denies: diaphoresis, fatigue, malaise, weakness, others EENTM: denies: blurred vision, double vision, ear bleeding, ear discharge, ear drainage, ear pain, ear ringing, eye pain, eye redness, hearing loss, mouth pain, mouth swelling, nasal discharge, nose bleeding, nose congestion, nose pain, photophobia, tearing, throat pain, throat swelling, voice changes, others Respiratory: denies: cough, hemoptysis, orthopnea, SOB at rest, shortness of breath, SOB with excertion, stridor, wheezing, others Cardiovascular: denies: chest pain, dizzy spells, diaphoresis, Dyspnea on exertion, edema, irregular heart beat, left arm pain, lightheadedness, palpitat ions, PND, syncope, others Gastrointestinal: reports: abdominal pain, nausea, vomiting; denies: abdomen distended, blood streaked bowels, constipated, diarrhea, dysphagia, difficulty swallowing, hematemesis, melena, poor appetite, poor fluid intake, rectal bleeding, rectal pain, others Genitourinary: denies: abnormal vagina bleeding, burning, dyspareunia, dysuria, flank pain, frequency, hematuria, incontinence, pain, , vagina discharge, urgency, others Neurological: denies: dizziness, fainting, headache, left sided numbness, left sided weakness, numbness, paresthesia, pre-existing deficit, right sided numbness, right sided weakness, seizure, speech problems, tingling, tremors, weakness, others Musculoskeletal: denies: back pain, gout, joint pain, joint swelling, muscle pain, muscle stiffness, neck pain, others Integumetry: denies: bruises, change in color, change in hair/nails, dryness, laceration, lesions, lumps, rash, wounds, others Allergic/Immunocompromised: denies: Difficulty Healing, Frequent Infections, Hives, Itching, others Hematologic/Lymphatic: denies: anemia, blood clots, easy bleeding, easy bruising, swollen glands, others Endocrine: denies: excessive hunger, excessive sweating, excessive thirst, excessive urination, flushing, intolerance to cold, intolerance to heat, unexplained weight gain, unexplained weight loss, others Psychiatric: denies: anxiety, bipolar disorder, depression, hopeless, panic disorder, schizophrenia, sleepless, suicidal, others All Other Systems: Reviewed and Negative Physical Exam General Appearance: Mild Distress HEENT: Normal ENT Inspection, Pharynx Normal, TMs Normal Neck: Full Range of Motion, Non-Tender, Normal, Normal Inspection Respiratory: Chest Non-Tender, Lungs Clear, No Accessory Muscle Use, No Respiratory Distress, Normal Breath Sounds Cardiovascular: No Edema, No JVD, No Murmur, No Gallop, Normal Peripheral Pu lses, Regular Rate/Rhythm Breast Exam: Deferred Gastrointestinal: No Organomegaly, Non Tender, No Pulsatile Mass, Normal Bowel Sounds, Soft Genitalia: Deferred Pelvic: Deferred Rectal: Deferred Extremities: No calf tenderness, Normal capillary refill, Normal inspection, Normal range of motion, Non-tender, No pedal edema Musculoskeletal : Apperance: Normal Neurologic: Alert, airport screener II-XII nml as Tested, No Motor Deficits, Normal Affect, Normal Mood, No Sensory Deficits Cerebellar Function: Normal Reflexes: Normal Skin: Dry, Normal Color, Warm Lymphatic: No Adenopathy Was a procedure done? Was a procedure done?: No GI differential Dx Differential Diagnosis: Gastritis/PUD, Gastroenteritis, Pancreatitis, Electrolyte Imbalance, Food Poisoning X-Ray, Labs, Meds, VS Vital Signs Date Time Temp Pulse Resp B/P (MAP) Pulse Ox O2 Delivery O2 Flow Rate FiO2 09/08/25 07:38 91 16 97 Room Air* 0 21 09/08/25 07:33 98.2 82 16 110/70 (83) 96 98.2 09/08/25 06:24 98.0 89 16 126/65 96 98.0 Lab Test 09/08/25 06:57 Range/Units White Blood Count 15.4 H 4.4-10.8 10^3/uL Red Blood Count 5.50 H 4.0-5.20 10^6/uL Hemoglobin 16.2 12.2-16.2 g/dL Hematocrit 46.7 H 36.0-46.0 % Mean Corpuscular Volume 84.8 80.0-100.0 fL Mean Corpuscular Hemoglobin 29.4 28.0-32.0 pg Mean Corpuscular Hemoglobin Concent 34.7 32.0-36.0 g/dL Red Cell Distribution Width 14.0 11.8-14.3 % Platelet Count 265 140-450 10^3/uL Mean Platelet Volume 8.9 6.9-10.8 fL Neutrophils (%) (Auto) 88.1 H 37.0-80.0 % Lymphocytes (%) (Auto) 6.5 L 10.0-50.0 % Monocytes (%) (Auto) 4.9 0.0-12.0 % Eosinophils (%) (Auto) 0.2 0.0-7.0 % Basophils (%) (Auto) 0.3 0.0-2.0 % Neutrophils # (Auto) 13.6 H 1.6-8.6 10 ^3/uL Lymphocytes # (Auto) 1.0 0.4-5.4 10 ^3/uL Monocytes # (Auto) 0.8 0-1.3 10 ^3/uL Eosinophils # (Auto) 0 0-0.8 10 ^3/uL Basophils # (Auto) 0 0-0.2 10 ^3/uL Nucleated Red Blood Cells 0.1 % Sodium Level 147 H 136-145 mmol/L Potassium Level 4.1 3.5-5.1 mmol/L Chloride Level 108 H 98-107 mmol/L Carbon Dioxide Level 27 20-31 mmol/L Anion Gap 12 5-15 Blood Urea Nitrogen 9 9-23 mg/dL Creatinine 0.77 0.550-1.02 mg/dL Glomerular Filtration Rate Calc 108 >90 mL/min BUN/Creatinine Ratio 11.7 10.0-20.0 Serum Glucose 110 H 74-106 mg/dL Calcium Level 9.7 8.7-10.4 mg/dL Total Bilirubin 0.9 0.2-1.0 mg/dL Aspartate Amino Transferase (AST) 22 13-40 U/L Alanine Aminotransferase (ALT) 40 7-40 U/L Alkaline Phosphatase 87 46-116 U/L Total Protein 7.7 5.7-8.2 g/dL Albumin 4.9 H 3.2-4.8 g/dL Lipase 28 12-53 U/L Current Medications Medications (Trade) Dose Ordered Sig/Maco Route Start Time Stop Time Status Last Admin Pantoprazole Sodium (Protonix) 40 mg ONCE ONCE IV 09/08/25 07:00 09/08/25 07:01 DC 09/08/25 07:55 Prochlorperazine Edisylate (Compazine Inj) 10 mg ONCE ONCE IV 09/08/25 07:00 09/08/25 07:01 DC 09/08/25 07:54 The patient was given Protonix 40 mg IV push The patient was given 10 mg IV push The patient's CBC shows an elevated white blood cell count of 15.4 The chemistry panel is within normal limits At this time, the patient is being discharged and will follow up with the [facility] care doctor The patient will return to the emergency department's condition worsens. Time of 1ST Reevaluation: 07:15 Reevaluation 1ST: Unchanged Patient Education/Counseling: Diagnosis, Treatment, Prognosis, Need For Follow Up Family Education/Counseling: No Family Present SEPSIS Sepsis Screen Date sepsis recognized/suspect: Sep 08, 2025 Time Sepsis recognized/suspect: 625 Recent Procedure: No On Antibiotic Therapy: No Respiratory Rate >20: No Heart Rate >90: No Temp<36 C (96.8 F) or >38.3 C: No SBP <90 or MAP <65 mmHG: No New Acute Mental Status Change: No Is the patient on CPAP, BIPAP,: No Physician Orders Urinalysis (09/08/25 06:49) Heplock Iv (09/08/25 06:49) Test, Urine (09/08/25 06:57) Vital Signs Date Time Temp Pulse Resp B/P (MAP) Pulse Ox O2 Delivery O2 Flow Rate FiO2 09/08/25 07:38 91 16 97 Room Air* 0 21 09/08/25 07:33 98.2 82 16 110/70 (83) 96 98.2 09/08/25 06:24 98.0 89 16 126/65 96 98.0 Laboratory Tests Test 09/08/25 06:57 White Blood Count 15.4 10^3/uL (4.4-10.8) H Medications Medications Dose Ordered Sig/Maco Route Start Time Stop Time Status Last Admin Dose Admin Pantoprazole Sodium 40 mg ONCE ONCE IV 09/08/25 07:00 09/08/25 07:01 DC 09/08/25 07:55 Prochlorperazine Edisylate 10 mg ONCE ONCE IV 09/08/25 07:00 09/08/25 07:01 DC 09/08/25 07:54 Departure 1 Departure Time of Disposition: 09:08 Impression: Primary Impression: ABDOMINAL PAIN Additional Impression: Nausea & vomiting Qualified Codes: R11.14 - Bilious vomiting Disposition: 01 HOME / SELF CARE / HOMELESS Condition: Fair e-Prescriptions Ondansetron Odt 4MG Tab (ZOFRAN PO) 4 Mg Tb 4 MG PO TIDPRN PRN for 7 Days, #21 TAB 0 Refills as needed for nausea; ODT TAB-DISSOLVE IN MOUTH, THEN SWALLOW Prov: YOEL ARCE MD 09/08/25 Pantoprazole Sodium Sesquihydr (Protonix) 40 Mg Tab 40 MG PO DAILY, #30 TAB Prov: YOEL ARCE MD 09/08/25 Discharged With: Self Critical Care Note Critical Care Time?: No Stability Stability form required: No Heart Score Heart Score: Heart Score Response (Comments) Value History N/A 0 EKG N/A 0 Age N/A 0 Risk Factors N/A 0 Troponin N/A 0 Total 0 I personally scribed for YOEL ARCE MD ([email or web address]) on 09/08/25 at 06:58. Electronically submitted by Agata Barber ([email or web address]). YOEL ARCE MD Sep 08, 2025 06:58
[2025-09-08 07:11] LABS: Hematocrit 46.7 % (36.0-46.0); Hemoglobin 16.2 g/dL (12.2-16.2); Mean Corpuscular Hemoglobin 29.4 pg (28.0-32.0); Mean Corpuscular Volume 84.8 fL (80.0-100.0); Nucleated Red Blood Cells % 0.1 %
[2025-09-08 07:23] LABS: Alanine Aminotransferase 40 U/L (7-40); Albumin 4.9 g/dL (3.2-4.8); Alkaline Phosphatase 87 U/L (46-116); Anion Gap 12 (5-15); BUN/Creatinine Ratio 11.7 (10.0-20.0); Bilirubin, Total 0.9 mg/dL (0.2-1.0); Blood Urea Nitrogen 9 mg/dL (9-23); Calcium 9.7 mg/dL (8.7-10.4); Carbon Dioxide 27 mmol/L (20-31); Chloride 108 mmol/L (98-107); Glucose 110 mg/dL (74-106); Lipase 28 U/L (12-53); Potassium 4.1 mmol/L (3.5-5.1); Sodium 147 mmol/L (136-145); Total Protein 7.7 g/dL (5.7-8.2)
[2025-09-08 07:38] VITALS: PULSE 91; RESP 16; O2SAT 97
[2025-09-08] MEDS: PROCHLORPERAZINE EDISYLATE 5 MG/ML 2ML VIAL IV ONE (07:54)
[2025-09-08] MEDS: PANTOPRAZOLE 40 MG/10 ML VIAL INJ IV ONE (07:55)
[2025-09-08] MEDS ORDERED: ZOFR4T PO (09:07)
[2025-09-08] MEDS ORDERED: PANT40TA2 PO (09:07)
[2025-09-08 09:24] LABS: Urine Amorphous Crystal MANY /hpf (None Seen); Urine Protein, UAD TRACE (Negative)
[2025-09-08 09:27] VITALS: BP 97/61; PULSE 101; RESP 16; TEMP 98.9; O2SAT 98
== END 2025-09-08 09:33 | disposition home or self-care (01) ==
LOC: ER 06:18 → EDBD 06:18 → ER 09:33
DX: R10.30 Lower abdominal pain, unspecified (principal); R11.2 Nausea with vomiting, unspecified; Z90.49 Acquired absence of other specified parts of digestive tract; Z79.899 Other long term (current) drug therapy; Z91.018 Allergy to other foods
CPT/HCPCS: 36415; 80053; 81001; 81025; 83690; 85025; 96374; 96375; 99284; J0780; J2470